=== PATIENT | male | born 1980 | race Caucasian/White ===

== ENCOUNTER 2017-03-26 14:12 | Emergency (ER) | payer SELFPAY ==
[~2017-03-26] VITALS: Ht 175.3 cm; Wt 70.0 kg
[~2017-03-26 14:12] MED LIST: OXYC1TAB63 PO
[2017-03-26 14:15] VITALS: BP 117/75; PULSE 102; RESP 20; TEMP 98.6; O2SAT 100
--- NOTE | 2017-03-26 14:18 | PD ---
Physical Exam Date Seen by Provider: Mar 26, 2017 Time Seen by Provider: 14:16 Narrative 36 yo male here for evaluation of chest pain. Going on since today. No SOB. pain to the mid upper chest. No recent travel or injury. 01/25. Vitals are stable in triage. Awaiting Bed placement. [facility] Medical Record Reviewed: Yes Supervised Visit with LEXI: Raj Meneses Mar 26, 2017 14:18
--- NOTE | 2017-03-26 14:51 | RADRPT ---
EXAM DATE/TIME: 03/26/2017 14:39 [facility] COMPARISON: No previous studies available for comparison. INDICATIONS : Left chest pain and fever since Friday MEDICAL HISTORY : AVM. SURGICAL HISTORY : AVM surgery. ENCOUNTER: Initial ACUITY: 2 days PAIN SCORE: 8/10 LOCATION: Left chest FINDINGS: PA and lateral views of the chest demonstrate the lungs to be symmetrically aerated without evidence of mass, infiltrate or effusion. The cardiomediastinal contours are unremarkable. Osseous structure s are intact. CONCLUSION: No acute disease. Chris Melara MD on March 26, 2017 at 14:49 Board Certified Radiologist. This report was verified electronically.
--- NOTE | 2017-03-27 11:37 | EKG ---
Date Performed: 03/26/2017 Time Performed: 14:40:19 PTAGE: 36 years EKG: Sinus rhythm WITH SHORT ND INTERVAL NONSPECIFIC T-WAVE ABNORMALITY BORDERLINE ECG Compared to prior tracing no si gnificant change PREVIOUS TRACING : 04/01/2015 10.05 DOCTOR: Tank Perez Interpretating Date/Time 03/27/2017 11:36:46
== END 2017-03-26 16:12 | disposition left against medical advice (07) ==
LOC: NED 14:12
DX: R07.9 Chest pain, unspecified (principal); Z53.21 Procedure and treatment not carried out due to patient leaving prior to being seen by health care provider
CPT/HCPCS: 71020; 93005; 99281

== ENCOUNTER 2017-03-27 20:47 | Inpatient (IN) | payer SELFPAY ==
[~2017-03-27] VITALS: Ht 182.9 cm; Wt 75.5 kg
[2017-03-27] VITALS (12 sets, daily range): BP systolic 117–155; BP diastolic 58–83; PULSE 79–108; RESP 16–25; TEMP 102–103.1; O2SAT 99–100
[2017-03-27] MEDS ORDERED: SODIUM CHLOR 0.9% 1000 ML INJ 800 ML IV ONE (20:53)
[2017-03-27] MEDS ORDERED: SODIUM CHLOR 0.9% 1000 ML INJ 1,000 ML IV ONE (20:53)
[2017-03-27] MEDS ORDERED: ACETAMINOPHEN 650 MG SUPP RECTAL ONE (21:00)
--- NOTE | 2017-03-27 21:01 | PD ---
HPI Chief Complaint: altered mental status Time Seen by Provider: 20:53 Travel History International Travel<30 days: No Contact w/Intl Traveler<30days: No Traveled to known affect area: No History of Present Illness HPI 36-year-old male with history of IVDU, brought in by ambulance from home for evaluation of altered mental status, left-sided paralysis, and rightward gaze. According to EMS who obtained history from the patient's mother, the patient was last seen normal yesterday when he presented to the emergency department here for chest pain, however left before being evaluated by a provider. EMS reports that the mom saw the patient at around 3:30 PM today sleeping. She placed a blanket on him, then when he was reevaluated at 7:30 PM, she noticed that he was not responding to her. BGL is 140. Upon arrival the patient has rightward preferential gaze, has left-sided paralysis, is awake, protecting his airway, following commands, however is aphasic and is unable to provide any history. Axillary temp of 101F. PFSH Past Medical History Blood Disorders: No Depression: Yes Cardiovascular Problems: Yes (AVM) Diminished Hearing: No Endocrine: No Gastrointestinal Disorders: No Genitourinary: No Headaches: Yes Immune Disorder: No Implanted Vascular Access Dvce: Yes Musculoskeletal: No Neurologic: Yes (HX AVM) Respiratory: Yes Seizures: Yes Past Surgical History Neurologic Surgery: Yes (AVM reapir occipital 6.5 yrs) Other Surgery: Yes (RIGHT HAND WITH PIN) Social History Alcohol Use: No Tobacco Use: Yes Substance Use: Yes (suboxone, IVDA) Allergies-Medications (Allergen,Severity, Reaction): Coded Allergies: Iohexol (OMNIPAQUE) (Verified Allergy, Mild, hives, 03/27/17) very mild hives, no itching. Reported Meds & Prescriptions Reported Meds & Active Scripts Active Oxycodone-Acetaminophen 5-325 mg Tab 1 Tab PO Q6H Review of Systems Except as stated in HPI: all other systems reviewed are Neg Physical Exam Narrative GENERAL: Well-developed, well-nourished, awake, alert, rightward gaze SKIN: Focused skin assessment warm/dry. HEAD: Atraumatic. Normocephalic. EYES: Pupils equal, round, 5 mm, reactive to light, rightward gaze palsy. No scleral icterus. No injection or drainage. ENT: No nasal bleeding or discharge. Mucous membranes pink and dry. Airway is patent and protected. NECK: Trachea midline. No JVD. No nuchal rigidity. CARDIOVASCULAR: Regular rate and rhythm. Distal pulses brisk and equal bilaterally. RESPIRATORY: No accessory muscle use. Clear to auscultation. Breath sounds equal bilaterally. GASTROINTESTINAL: Abdomen soft, non-tender, nondistended. MUSCULOSKELETAL: No obvious deformities. No clubbing. No cyanosis. No edema. NEUROLOGICAL: Awake and alert. No obvious cranial nerve deficits. Rightward gaze palsy. Flaccid paralysis of left upper and left lower extremity. Normal muscle strength and right upper and right lower extremity. Follows commands. Aphasic. Airway is patent and protected. PSYCHIATRIC: Appropriate mood and affect; insight and judgment normal. Data Data Last Documented VS Vital Signs Date Time Temp Pulse Resp B/P Pulse Ox O2 Delivery O2 Flow Rate FiO2 03/27/17 21:28 95 22 128/83 99 Room Air 03/27/17 20:53 102.7 Orders Electrocardiogram (03/27/17 20:53) Complete Blood Count With Diff (03/27/17 20:53) Comprehensive Metabolic Panel (03/27/17 20:53) Prothrombin Time / Inr (Pt) (03/27/17 20:53) Act Partial Throm Time (Ptt) (03/27/17 20:53) Lactic Acid Sepsis Protocol (03/27/17 20:53) Ckmb (Isoenzyme) Profile (03/27/17 20:53) Troponin I (03/27/17 20:53) Urinalysis - C+S If Indicated (03/27/17 20:53) Blood Culture (03/27/17 20:53) Chest, Single Ap (03/27/17 20:53) Blood Glucose (03/27/17 20:53) Ecg Monitoring (03/27/17 20:53) Iv Access Insert/Monitor (03/27/17 20:53) Oximetry (03/27/17 20:53) Oxygen Administration (03/27/17 20:53) Ct Brain W/O Iv Contrast(Rout) (03/27/17 20:53) Sodium Chlor 0.9% 1000 Ml Inj (Ns 1000 M (03/27/17 20:53) Sodium Chlor 0.9% 1000 Ml Inj (Ns 1000 M (03/27/17 20:53) Drug Screen, Random Urine (03/27/17 20:53) Insert Temp Sensing Alex Cath (03/27/17 20:53) Ammonia (03/27/17 20:53) Acetaminophen Supp (Tylenol Supp) (03/27/17 21:00) Vancomycin Inj (Vancomycin Inj) (03/27/17 21:15) Piperacil-Tazo 4.5 Gm Premix (Zosyn 4.5 (03/27/17 21:15) Admit Order (Ed Use Only) (03/27/17 21:35) CKMB (03/27/17 21:00) CKMB% (03/27/17 21:00) Labs Laboratory Tests Test 03/27/17 21:00 White Blood Count 18.6 TH/MM3 Red Blood Count 4.33 MIL/MM3 Hemoglobin 12.2 GM/DL Hematocrit 36.8 % Mean Corpuscular Volume 84.9 FL Mean Corpuscular Hemoglobin 28.1 PG Mean Corpuscular Hemoglobin 33.2 % Concent Red Cell Distribution Width 13.7 % Platelet Count 114 TH/MM3 Mean Platelet Volume 8.4 FL Neutrophils (%) (Auto) 96.2 % Lymphocytes (%) (Auto) 0.8 % Monocytes (%) (Auto) 2.4 % Eosinophils (%) (Auto) 0.3 % Basophils (%) (Auto) 0.3 % Neutrophils # (Auto) 17.9 TH/MM3 Lymphocytes # (Auto) 0.1 TH/MM3 Monocytes # (Auto) 0.5 TH/MM3 Eosinophils # (Auto) 0.1 TH/MM3 Basophils # (Auto) 0.1 TH/MM3 CBC Comment DIFF FINAL Differential Comment Prothrombin Time 16.2 SEC Prothromb Time International 1.4 RATIO Ratio Activated Partial 35.3 SEC Thromboplast Time Sodium Level 134 MEQ/L Potassium Level 3.4 MEQ/L Chloride Level 103 MEQ/L Carbon Dioxide Level 22.1 MEQ/L Anion Gap 9 MEQ/L Blood Urea Nitrogen 24 MG/DL Creatinine 1.03 MG/DL Estimat Glomerular Filtration 82 ML/MIN Rate Random Glucose 136 MG/DL Lactic Acid Level 2.3 mmol/L Calcium Level 7.8 MG/DL Total Bilirubin 1.5 MG/DL Aspartate Amino Transf 76 U/L (AST/SGOT) Alanine Aminotransferase 56 U/L (ALT/SGPT) Alkaline Phosphatase 122 U/L Ammonia LESS THAN 10 MCMOL/L Total Creatine Kinase 152 U/L Creatine Kinase MB 2.0 NG/ML Troponin I 4.22 NG/ML Total Protein 6.6 GM/DL Albumin 2.8 GM/DL MDM Medical Decision Making Medical Screen Exam Complete: Yes Emergency Medical Condition: Yes Medical Record Reviewed: Yes Interpretation(s) EKG: Sinus, rate 80, normal axis, short MD interval, no acute ischemic abnormality. Differential Diagnosis ICH, CVA, septic emboli, brain abscess, meningitis, encephalitis, metabolic abnormality, sepsis, bacteremia Narrative Course Patient was assessed upon arrival to the emergency department and promptly taken to CT scan for suspected acute intracranial pathology. Sepsis labs were also ordered and the patient was written for IV vancomycin and IV Zosyn. Patient is awake. He is staring off to the right. He has paralysis of the left upper and left lower extremity. He is able to follow commands, however he is aphasic. CT head: Small scattered cortical hemorrhages most prevalent right occipital region. Chest x-ray: CONCLUSION: Minimal patchy airspace disease both lungs probable inflammatory process. Initial vital signs show heart rate 86, blood pressure 128/58, pulse ox 99% on room air, oral temp of 102.7F. CBC is remarkable for WBC 18.6, neutrophils 96.2%. Lactic acid is 2.3. Troponin is 4.22. This is likely secondary to sepsis/endocarditis. Case discussed with conservator artifacts Dr. Abdul. Patient will be admitted to his service to the ICU for further treatment and evaluation of likely septic emboli with scattered cortical hemorrhages, sepsis, left hemiparesis. Shortly after the patient was admitted to the ICU, while still in the emergency department his mental status further decline. He was intubated for airway protection. Critical Care Narrative Aggregate critical care time was 40 minutes. Time to perform other separately billable procedures was not included in the critical care time. My time did not include minutes spent treating any other patients simultaneously or on activities that did not directly contribute to the patient's treatment. The services I provided to this patient were to treat and/or prevent clinically significant deterioration that could result in: , permanent disability, septic shock I provided critical care services requiring my management, as noted below: Chart data review, documentation time, medication orders and management, vital sign assessments/reviewing monitor data, ordering and reviewing lab tests, ordering and interpreting/reviewing x-rays and diagnostic studies, care of the patient and discussion of the patient with the admitting physicians. Procedures Procedure Narrative Emergent intubation: The patient was put in optimal position for the procedure. Rapid sequence intubation was initiated by me using 20 milligrams of etomidate IV and 50 milligrams of rocuronium IV. The patient was intubated with a 8.0 Icelandic cuffed endotracheal tube. Tube placement was confirmed by visualization of the tube and balloon passing through the cords, capnometry and subsequent chest x-ray. Breath sounds were equal and well aerated bilaterally postintubation. No breath sounds over stomach. Patient tolerated procedure well. Diagnosis Primary Impression: Sepsis Qualified Code: A41.9 - Sepsis, due to unspecified organism Additional Impressions: Cortical hemorrhage Hemiparesis Qualified Code: G81.90 - Hemiparesis, unspecified hemiparesis etiology, unspecified laterality Admitting Information Admitting Physician Requests: Admit Price Ghotra MD Mar 27, 2017 21:01
[2017-03-27] MEDS ORDERED: VANCOMYCIN INJ 1,000 MG in SODIUM CHLOR 0.9% 250 ML INJ 250 ML IV ONE (21:15)
[2017-03-27] MEDS ORDERED: PIPERACIL-TAZO 4.5 GM PREMIX 100 ML IV ONE (21:15)
[2017-03-27 21:21] LABS: AUTOMATED NEUTROPHIL # 17.9 TH/MM3 (1.8-7.7); BASOPHIL # 0.1 TH/MM3 (0-0.2); BASOPHIL % 0.3 % (0.0-2.0); EOSINOPHIL # 0.1 TH/MM3 (0-0.4); EOSINOPHIL % 0.3 % (0.0-4.0); HEMATOCRIT 36.8 % (39.0-51.0); HEMO FLAGS DIFF FINAL; LYMPH % 0.8 % (9.0-44.0); LYMPHOCYTE # 0.1 TH/MM3 (1.0-4.8); MEAN CELL VOLUME 84.9 FL (80.0-100.0); MEAN CORPUSCULAR HEMOGLOBIN 28.1 PG (27.0-34.0); MEAN CORPUSCULAR HGB CONC 33.2 % (32.0-36.0); MONO % 2.4 % (0.0-8.0); NEUT % 96.2 % (16.0-70.0); PLATELET COUNT 114 TH/MM3 (150-450); RED BLOOD COUNT 4.33 MIL/MM3 (4.50-5.90); RED CELL DISTRIBUTION WIDTH 13.7 % (11.6-17.2); WHITE BLOOD COUNT 18.6 TH/MM3 (4.0-11.0)
--- NOTE | 2017-03-27 21:28 | RADRPT ---
EXAM DATE/TIME: 03/27/2017 20:59 [facility] COMPARISON: CT BRAIN W/O CONTRAST, June 13, 2014, 17:22. INDICATIONS : Altered mental status, unresponsive. RADIATION DOSE: 56.35 CTDIvol (mGy) MEDICAL HISTORY : Non-responsive. SURGICAL HISTORY : Non-responsive. ENCOUNTER: Initial ACUITY: 1 day PAIN SCALE: Non-responsive LOCATION: cranial TECHNIQUE: Multiple contiguous axial images were obtained of the head. Using automated exposure control and adj ustment of the mA and/or kV according to patient size, radiation dose was kept as low as reasonably a chievable to obtain optimal diagnostic quality images. DICOM format image data is available electro nically for review and comparison. FINDINGS: Scattered small cortical hemorrhage are evident. There is no subdural hemorrhage. Ventricle size is appropriate. Minimal parenchymal calcifications are present in the right parietal occipital region stable interval. Orbits and nasal sinuses are unremarkable. CONCLUSION: Small scattered cortical hemorrhages most prevalent right occipital region. Vahe Sanchez MD FACR on March 27, 2017 at 21:25 Board Certified Radiologist. This report was verified electronically.
[2017-03-27 21:33] LABS: ALT (GPT) 56 U/L (12-78); ANION GAP 9 MEQ/L (5-15); AST (GOT) 76 U/L (15-37); BICARBONATE 22.1 MEQ/L (21.0-32.0); BLOOD UREA NITROGEN 24 MG/DL (7-18); CHLORIDE 103 MEQ/L (98-107); GLOMERULAR FILTRATION RATE 82 ML/MIN (>89); POTASSIUM 3.4 MEQ/L (3.5-5.1); SODIUM (NA) 134 MEQ/L (136-145)
[2017-03-27 21:37] LABS: ALKALINE PHOSPHATASE 122 U/L (45-117); CREATINE KINASE 152 U/L (39-308); TOTAL BILIRUBIN ADULT 1.5 MG/DL (0.2-1.0)
--- NOTE | 2017-03-27 21:38 | RADRPT ---
EXAM DATE/TIME: 03/27/2017 21:09 [facility] COMPARISON: CHEST SINGLE AP, April 01, 2015, 9:39. INDICATIONS : Fever. MEDICAL HISTORY : AVM SURGICAL HISTORY : AVM surgery. ENCOUNTER: Initial ACUITY: 3 days PAIN SCORE: Non-responsive. LOCATION: Bilateral chest FINDINGS: Minimal patchy nonspecific airspace disease is present in both lungs of the inflammatory process. Th ere is no pleural effusion. The heart and pulmonary vascularity are normal. CONCLUSION: Minimal patchy airspace disease both lungs probable inflammatory process. Vahe Sanchez MD FACR on March 27, 2017 at 21:36 Board Certified Radiologist. This report was verified electronically.
[2017-03-27 21:46] LABS: APTT (PATIENT) 35.3 SEC (24.3-30.1); INTERNATIONAL NORMALIZED RATIO 1.4 RATIO; PROTHROMBIN TIME - PATIENT 16.2 SEC (9.8-11.6)
[2017-03-27] MEDS ORDERED: MIDAZOLAM 100 MG/ML INJ 100 ML IV SCH (22:15)
[2017-03-27 22:23] LABS: BACTERIA, URINE RARE /hpf; BLOOD, URINE MOD (NEG); GLUCOSE,URINE NEG (NEG); KETONE, URINE TRACE mg/dL (NEG); NITRITE,URINE NEG (NEG); URINE COLOR YELLOW (YELLW/STRAW)
[2017-03-27 22:24] LABS: COMMENT (UR) CATH-CULTURE IND; CULTURE IF INDICATED CATH CULTURE IND
--- NOTE | 2017-03-27 22:39 | RADRPT ---
EXAM DATE/TIME: 03/27/2017 22:05 [facility] COMPARISON: CHEST SINGLE AP, March 27, 2017, 21:09. INDICATIONS : Post intubation. MEDICAL HISTORY : Unobtainable. SURGICAL HISTORY : Unobtainable. ENCOUNTER: Subsequent ACUITY: 1 day PAIN SCORE: Non-responsive. LOCATION: Bilateral chest FINDINGS: ET tube nasogastric tube in good position. Lungs are clear. The portion of the bony skeleton visuali zed is unremarkable. The heart and pulmonary vascularity are normal. CONCLUSION: Support apparatus in good position. Lungs are clear. Vahe Sanchez MD FACR on March 27, 2017 at 22:37 Board Certified Radiologist. This report was verified electronically.
[2017-03-27 22:43] LABS: BLOOD GAS BASE EXCESS -4.5 mmol/L (-2-2); BLOOD GAS CARBOXYHEMOGLOBIN 0.6 % (0-4); BLOOD GAS HCO3 21 mmol/L (22-26); BLOOD GAS METHEMOGLOBIN 0.9 % (0-2); BLOOD GAS O2 HGB SATURATION 96 % (90-100); BLOOD GAS OXYGEN CONTENT 16.1 Vol % (12.0-20.0); BLOOD GAS PCO2 46 mmHg (38-42); BLOOD GAS PO2 120 mmHG (61-120); BLOOD GAS TOTAL HGB 11.8 G/DL (12.0-16.0); TEMP CORR TO 98.6
[2017-03-27 22:44] LABS: CRITICAL VALUE YES; DRAW SITE LT BRACHIAL; FIO2 35 %; NUMBER OF ARTERIAL PUNCTURES 1; OXYGEN DEVICE VENTILATOR; STAT YES; ULNAR PULSE PRESENT; VENT SETTINGS VAC16/500/PEEP5
[2017-03-27] MEDS ORDERED: ETOMIDATE 20 MG/10 ML VIAL IV PUSH ONE (22:45)
[2017-03-27] MEDS ORDERED: ROCURONIUM INJ 50 MG/5 ML VIAL IV ONE (22:45)
[2017-03-27 23:12] LABS: LACTIC ACID GHOST NOT REPORTABLE
[2017-03-27] MEDS ORDERED: POTASSIUM CHLOR 20 MEQ PREMIX 100 ML IV PRN ×2 (23:15)
[2017-03-27] MEDS ORDERED: DEXTROSE 50% IN WATER 50 ML VIAL(D50) IV PUSH PRN (23:15)
[2017-03-27] MEDS ORDERED: Vancomycin Consult Pharmacy 1 EA OTHER SCH (23:15)
[2017-03-27] MEDS ORDERED: MAGNESIUM SULFATE INJ 4 GM in SODIUM CHLORIDE 0.9% INJ 92 ML IV PRN (23:15)
[2017-03-27] MEDS ORDERED: POTASSIUM PHOSPHATE INJ 30 MMOL in SODIUM CHLOR 0.9% 250 ML INJ 250 ML IV PRN (23:15)
[2017-03-27] MEDS ORDERED: MAGNESIUM OXIDE 400 MG TAB PO PRN (23:15)
[2017-03-27] MEDS ORDERED: POTASSIUM PHOSPHATE MONOBASIC 500 MG TAB PO PRN (23:15)
[2017-03-27] MEDS ORDERED: LACTATED RINGER'S 1000 ML INJ 1,000 ML IV SCH (23:15)
[2017-03-27] MEDS ORDERED: POTASSIUM CHLOR 40 MEQ PREMIX 100 ML IV PRN ×2 (23:15)
[2017-03-27] MEDS ORDERED: MAGNESIUM SULFATE INJ 2 GM in SODIUM CHLORIDE 0.9% INJ 96 ML IV PRN (23:15)
[2017-03-27] MEDS ORDERED: POTASSIUM PHOSPHATE MONOBASIC 500 MG TAB PO/TUBE PRN (23:15)
[2017-03-27] MEDS ORDERED: RESP: ALBUTEROL 2.5 MG/IPRATROPIUM 0.5 MG NEB (PRN) INH (23:15)
[2017-03-27] MEDS ORDERED: SODIUM PHOSPHATE INJ 30 MMOL in SODIUM CHLOR 0.9% 250 ML INJ 240 ML IV PRN (23:15)
--- NOTE | 2017-03-27 23:22 | HHI.HP ---
HPI Service Critical Care Medicine Primary Care Physician No Primary Care Physician Admission Diagnosis sepsis, cortical hemorrhages, left hemiparesis Diagnosis: Chief Complaint: chest pain, altered mental status Travel History International Travel<30 Days: No Contact w/Intl Traveler <30 Da: No Traveled to Known Affected Are: No History of Present Illness This is a 36-year-old male with a history of IV drug abuse who originally presented to the hospital yesterday with complaints of chest pain but left AMA before being evaluated. He reports a net today brought in by EMS for altered mental status, left-sided paralysis, and rightward gaze. He was last seen normal last night. He was not protecting his area emergency department and was intubated by the emergency room physician for hypoxic and hypercarbic respiratory failure. He was febrile in the emergency department with a leukocytosis, lactic acidosis. CT head is positive for multiple small punctate hemorrhages. I was present for his bedside transthoracic echocardiogram which appears to be positive for a 1 x 1 cm mobile aortic valve vegetation with significant aortic regurgitation. 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 Review of Systems ROS Limitations: Clinical Condition, Intubated, Altered Mental Status Past Family Social History Allergies: Coded Allergies: Iohexol (OMNIPAQUE) (Verified Allergy, Mild, hives, 03/27/17) very mild hives, no itching. Past Medical History Depression Cerebral AVM status post resection at [facility] when he was a child Headaches Seizures Past Surgical History AVM resection at the age of 6.5 years Pin In the right hand Reported Medications Oxycodone-Acetaminophen 5-325 mg Tab 1 Tab PO Q6H Active Ordered Medications See MAR Family History Unobtainable secondary to the clinical condition of the patient Social History Positive for current and active IV drug abuse, Suboxone Physical Exam Vital Signs Vital Signs Date Time Temp Pulse Resp B/P Pulse Ox O2 Delivery O2 Flow Rate FiO2 03/27/17 23:00 102.0 104 16 130/64 100 Ventilator 35 03/27/17 22:25 102.9 108 16 155/71 100 Ventilator 35 03/27/17 22:13 105 16 154/72 100 Ventilator 35 03/27/17 22:07 103.1 106 16 122/62 100 Ventilator 35 03/27/17 22:04 35 03/27/17 22:03 100 20 130/60 100 Room Air 03/27/17 22:01 100 35 03/27/17 21:55 100 20 125/59 100 Room Air 03/27/17 21:55 100 Nasal Cannula 13 03/27/17 21:28 95 22 128/83 99 Room Air 03/27/17 21:23 25 100 Room Air 03/27/17 21:20 90 25 100 Room Air 03/27/17 21:00 79 22 117/61 100 Room Air 03/27/17 20:53 102.7 86 25 128/58 99 Physical Exam GENERAL: Young male, lying in bed, intubated, sedated, critically ill HEENT: Normocephalic. Atraumatic. Pupils equal, round, reactive, conjugate. Mucous membranes are moist NECK: Trachea is midline. There is no JVD. CHEST: Equal chest rise. Intubated. PRVC, 40% FiO2 CARDIOVASCULAR: Tachycardic rate, regular rhythm. Sinus by telemetry ABDOMEN: Soft, nontender, nondistended. No guarding. MUSCULOSKELETAL: Pulses 2+. No peripheral edema. Positive for splinter hemorrhages. Also positive for evidence of IV needle radford particularly in the upper extremities NEUROLOGICAL: RASS -3. Withdrawals pain 4, does not follow commands. Sedated Laboratory Laboratory Tests Test 03/27/17 03/27/17 03/27/17 21:00 21:28 22:25 White Blood Count 18.6 Red Blood Count 4.33 Hemoglobin 12.2 Hematocrit 36.8 Mean Corpuscular Volume 84.9 Mean Corpuscular Hemoglobin 28.1 Mean Corpuscular Hemoglobin 33.2 Concent Red Cell Distribution Width 13.7 Platelet Count 114 Mean Platelet Volume 8.4 Neutrophils (%) (Auto) 96.2 Lymphocytes (%) (Auto) 0.8 Monocytes (%) (Auto) 2.4 Eosinophils (%) (Auto) 0.3 Basophils (%) (Auto) 0.3 Neutrophils # (Auto) 17.9 Lymphocytes # (Auto) 0.1 Monocytes # (Auto) 0.5 Eosinophils # (Auto) 0.1 Basophils # (Auto) 0.1 CBC Comment DIFF FINAL Differential Comment Prothrombin Time 16.2 Prothromb Time International 1.4 Ratio Activated Partial 35.3 Thromboplast Time Sodium Level 134 Potassium Level 3.4 Chloride Level 103 Carbon Dioxide Level 22.1 Anion Gap 9 Blood Urea Nitrogen 24 Creatinine 1.03 Estimat Glomerular Filtration 82 Rate Random Glucose 136 Lactic Acid Level 2.3 Calcium Level 7.8 Total Bilirubin 1.5 Aspartate Amino Transf 76 (AST/SGOT) Alanine Aminotransferase 56 (ALT/SGPT) Alkaline Phosphatase 122 Ammonia LESS THAN 10 Total Creatine Kinase 152 Creatine Kinase MB 2.0 Troponin I 4.22 Total Protein 6.6 Albumin 2.8 Urine Color YELLOW Urine Turbidity CLEAR Urine pH 6.0 Urine Specific Arjay 1.023 Urine Protein 30 Urine Glucose (UA) NEG Urine Ketones TRACE Urine Occult Blood MOD Urine Nitrite NEG Urine Bilirubin NEG Urine Urobilinogen 2.0 Urine Leukocyte Esterase SMALL Urine RBC 8 Urine WBC 10 Urine Bacteria RARE Urine Yeast (Budding) OCC Microscopic Urinalysis Comment CATH-CULTURE IND Blood Gas Puncture Site LT BRACHIAL Blood Gas Patient Temperature 98.6 Blood Gas HCO3 21 Blood Gas Base Excess -4.5 Blood Gas Oxygen Saturation 96 Arterial Blood pH 7.29 Arterial Blood Partial 46 Pressure CO2 Arterial Blood Partial 120 Pressure O2 Arterial Blood Oxygen Content 16.1 Arterial Blood 0.6 Carboxyhemoglobin Arterial Blood Methemoglobin 0.9 Blood Gas Hemoglobin 11.8 Oxygen Delivery Device VENTILATOR Blood Gas Ventilator Setting [id number]/500/[id number] Blood Gas Inspired Oxygen 35 Date/Time Procedure Status Source Growth 03/27/17 21:28 Urine Culture Received Urine Catheterized Urine Pending 03/27/17 21:00 Aerobic Blood Culture Received Blood Peripheral Pending 03/27/17 21:00 Anaerobic Blood Culture Received Blood Peripheral Pending Result Diagram: 03/27/17 2100 03/27/17 2100 Imaging Last Impressions Head CT 03/27/172052 Signed Impressions: Service Date/Time: March 20:59 - CONCLUSION: Small scattered cortical hemorrhages most prevalent right occipital region. Vahe Sanchez MD FACR Chest X-Ray 03/27/172052 Signed Impressions: Service Date/Time: March 21:09 - CONCLUSION: Minimal patchy airspace disease both lungs probable inflammatory process. Vahe Sanchez MD FACR Assessment and Plan Assessment and Plan Assessment: This is a 36yM with aortic valve infective endocarditis, significant aortic regurgitation, punctate intracerebral hemorrhages, acute encephalopathy, severe sepsis, and acute hypoxic and hypercarbic respiratory failure. He remains critically ill at this time. Will admit to ICU, IV abx, frequent neuro checks, repeat CT head in the AM to eval for interval change in small punctate hemorrhages. avoid anticoagulation. ID consult for ongoing recommendations regarding his infective endocarditis. Plan by systems: Neurologic: Acute encephalopathy Acute punctate intracerebral hemorrhages Septic intracerebral emboli IV drug abuse Chronic opiates/Suboxone abuse Frequent neuro checks Repeat head CT in the morning Avoid long-acting sedating meds Propofol/fentanyl for sedation vent synchrony Watch for withdrawal symptoms Respiratory: Acute hypoxic and hypercarbic respiratory failure Vent bundle Head of bed at 30 Wean FiO2 for SPO2 greater than 90% Does not meet SBT criteria given hemodynamic instability Nebs Cardiovascular: Aortic valve infective endocarditis Aortic regurgitation Severe sepsis Elevated troponin unlikely to be ACS given lack of risk factors. elevated troponin likely demand ischemia and secondary to valvular lesion. could be due to septic coronary emboli. trend troponins. cannot anticoagulate due to intracerebral hemorrhages. Maintenance fluids normal saline 84 cc an hour IV antibiotics as below Follow-up official formal read of 2-D echo Renal: Place Alex, strict I's and O's, close monitoring of urine output given severe sepsis and valvulopathy -- Strict I/Os FEN/GI: Acute protein calorie malnutritionmoderate Intravascular volume depletion Elevated LFTs Start tube feeding Fluids as described above ICU electrolyte protocol Send hepatitis panel Liver ultrasound Heme/ID: Coagulopathylikely secondary to liver disease Aortic valve infective endocarditis Severe sepsis Trend coags Does not meet transfusion criteria at this time. INR is < 1.6, so FFP will not improve clotting time. would plan to only use FFP if ICH is worsening. Vancomycin with pharmacy dosing Zosyn 4.5 g IV every 6 ID consult Endocrine: Hyperglycemia of critical illness -- SSI, every 6, medium scale Prophylaxis: GI Prophylaxis Pepcid twice a day DVT Prophylaxis -- SCDs Pharmacologic DVT prophylaxis contraindicated given intracerebral hemorrhages Lines: Peripheral IVs. May require central access at some point Abi Dispo: Admit to the ICU. Remains critically ill This patient remains critically ill with one or more organ systems which are or may become a threat to life. I have spent in excess of 77 minutes discontinuously in the care and management of this patient. This time is exclusive of procedures, and includes, but is not limited to, evaluation of the patient, review of the medical record, discussions with family, consultants, nursing staff, or respiratory therapy, and documentation in the medical record. Code Status Full Code Discussed Condition With Dr. Ghotra, family at bedside, bedside RN Chavo Abdul MD Mar 27, 2017 23:22
[2017-03-28] VITALS (24 sets, daily range): BP systolic 101–110; BP diastolic 51–56; PULSE 84–108; RESP 14–27; TEMP 100.3–102; O2SAT 94–100
[2017-03-28] MEDS ORDERED: ROCURONIUM INJ 50 MG/5 ML VIAL ONE (00:02)
[2017-03-28] MEDS ORDERED: CHLORHEXIDINE GLUCONATE 2 % 1 PACK (2 CLOTHS)(extra cloths) TOPICAL PRN (00:30)
[2017-03-28 01:06] LABS: AMPHETAMINE, URINE NEG (NEG); BARBITURATES, URINE NEG (NEG); COCAINE, URINE POS (NEG)
[2017-03-28] MEDS: RESP: ALBUTEROL 2.5 MG/IPRATROPIUM 0.5 MG NEB (SCH) INH ×4 (03:30→22:15)
[2017-03-28] MEDS: PIPERACIL-TAZO 4.5 GM PREMIX 100 ML IV SCH ×4 (03:36→20:11)
[2017-03-28] MEDS: CHLORHEXIDINE GLUCONATE 2 % 1 PACK (2 CLOTHS)(taper/protocol) TOPICAL SCH (03:40)
[2017-03-28] MEDS: fentaNYL DRIP 250 ML IV SCH (05:14)
--- NOTE | 2017-03-28 05:28 | RADRPT ---
EXAM DATE/TIME: 03/28/2017 04:31 [facility] COMPARISON: CHEST SINGLE AP, March 27, 2017, 22:05. INDICATIONS : Atelectasis MEDICAL HISTORY : None. SURGICAL HISTORY : None. ENCOUNTER: Subsequent ACUITY: 3 days PAIN SCORE: Non-responsive. LOCATION: Bilateral chest FINDINGS: Mild consolidation with air bronchograms seen medially at the left lung base, not significantly martin ed. No pleural effusion seen. No pneumothorax. Heart size stable, normal. Endotracheal tube tip is about 5 cm above the rachana. Nasogastric tube courses into the stomach. CONCLUSION: No significant change. Medial left lung base consolidation persists. Hira Guillen MD on March 28, 2017 at 5:25 Board Certified Radiologist. This report was verified electronically.
[2017-03-28 05:33] LABS: HEMATOCRIT 34.2 % (39.0-51.0); MEAN CELL VOLUME 82.9 FL (80.0-100.0); MEAN CORPUSCULAR HEMOGLOBIN 28.6 PG (27.0-34.0); MEAN CORPUSCULAR HGB CONC 34.5 % (32.0-36.0); PLATELET COUNT 81 TH/MM3 (150-450); RED BLOOD COUNT 4.13 MIL/MM3 (4.50-5.90); RED CELL DISTRIBUTION WIDTH 13.8 % (11.6-17.2); WHITE BLOOD COUNT 18.8 TH/MM3 (4.0-11.0)
[2017-03-28 05:37] LABS: REVIEW FLAG FINAL
[2017-03-28 05:43] LABS: BICARBONATE 20.2 MEQ/L (21.0-32.0); POTASSIUM 3.6 MEQ/L (3.5-5.1)
[2017-03-28 05:46] LABS: BLOOD GAS BASE EXCESS -3.3 mmol/L (-2-2); BLOOD GAS CARBOXYHEMOGLOBIN 1.1 % (0-4); BLOOD GAS HCO3 20 mmol/L (22-26); BLOOD GAS METHEMOGLOBIN 1.3 % (0-2); BLOOD GAS O2 HGB SATURATION 97 % (90-100); BLOOD GAS OXYGEN CONTENT 16.4 Vol % (12.0-20.0); BLOOD GAS PCO2 32 mmHg (38-42); BLOOD GAS PO2 158 mmHg (61-120); BLOOD GAS TOTAL HGB 11.8 G/DL (12.0-16.0); CRITICAL VALUE NO; DRAW SITE RT RADIAL; FIO2 35 %; NUMBER OF ARTERIAL PUNCTURES 1; OXYGEN DEVICE VENTILATOR; STAT NO; ULNAR PULSE PRESENT; VENT SETTINGS AC 16/500/5PEEP
[2017-03-28] MEDS: INSULIN NovoLIN REGULAR SUPPLEMENTAL SCALE SQ SCH ×5 (06:00→23:31)
--- NOTE | 2017-03-28 08:06 | HHI.CCPN ---
Subjective Remarks/Hospital Course This is a 36-year-old male with a history of IV drug abuse who originally presented to the hospital yesterday with complaints of chest pain but left AMA before being evaluated. He reports a net today brought in by EMS for altered mental status, left-sided paralysis, and rightward gaze. He was last seen normal last night. He was not protecting his area emergency department and was intubated by the emergency room physician for hypoxic and hypercarbic respiratory failure. He was febrile in the emergency department with a leukocytosis, lactic acidosis. CT head is positive for multiple small punctate hemorrhages. I was present for his bedside transthoracic echocardiogram which appears to be positive for a 1 x 1 cm mobile aortic valve vegetation with significant aortic regurgitation. 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 SUBJ 03/28: Remains intubated sedated with Fentanyl gtt. Flaccid L hemiparesis. Continues to spike fever, and remains encephalopathic indicating ongoing severe sepsis. P/E with [place]ub[place] murmur. TTE personally reviewed. Evidence of AV vegetation with severe AI Objective Vital Signs Date Time Temp Pulse Resp B/P Pulse Ox O2 Delivery O2 Flow Rate FiO2 03/28/17 07:27 95 35 03/27/17 23:00 102.0 104 16 130/64 Ventilator 03/27/17 21:55 13 Result Diagram: 03/28/17 0434 03/28/17 0434 Other Results Laboratory Tests Test 03/27/17 03/28/17 22:25 05:30 Blood Gas Puncture Site LT BRACHIAL RT RADIAL Blood Gas Patient Temperature 98.6 102.0 Blood Gas HCO3 21 mmol/L 20 mmol/L (22-26) (22-26) Blood Gas Base Excess -4.5 mmol/L -3.3 mmol/L (-2-2) (-2-2) Blood Gas Oxygen Saturation 96 % (90-100) 97 % (90-100) Arterial Blood pH 7.29 7.43 (7.380-7.420) (7.380-7.420) Arterial Blood Partial 46 mmHg (38-42) 32 mmHg (38-42) Pressure CO2 Arterial Blood Partial 120 mmHG 158 mmHg Pressure O2 (61-120) (61-120) Arterial Blood Oxygen Content 16.1 Vol % 16.4 Vol % (12.0-20.0) (12.0-20.0) Arterial Blood 0.6 % (0-4) 1.1 % (0-4) Carboxyhemoglobin Arterial Blood Methemoglobin 0.9 % (0-2) 1.3 % (0-2) Blood Gas Hemoglobin 11.8 G/DL 11.8 G/DL (12.0-16.0) (12.0-16.0) Oxygen Delivery Device VENTILATOR VENTILATOR Blood Gas Ventilator Setting VAC16/500/PEEP5 AC 16/500/5PEEP Blood Gas Inspired Oxygen 35 % 35 % Imaging Last Impressions Head CT 03/27/172052 Signed Impressions: Service Date/Time: March 20:59 - CONCLUSION: Small scattered cortical hemorrhages most prevalent right occipital region. Vahe Sanchez MD FACR Chest X-Ray 03/27/172052 Signed Impressions: Service Date/Time: March 21:09 - CONCLUSION: Minimal patchy airspace disease both lungs probable inflammatory process. Vahe Sanchez MD FACR Objective Remarks GENERAL: Young male, lying in bed, intubated, sedated, critically ill HEENT: Normocephalic. Atraumatic. Pupils equal, round, reactive, conjugate. Mucous membranes are moist NECK: Trachea is midline. There is no JVD. CHEST: Equal chest rise. Intubated. PRVC, 40% FiO2 CARDIOVASCULAR: Tachycardic rate, regular rhythm. Sinus by telemetry. Early diastolic ([place]ub[place]) murmur ABDOMEN: Soft, nontender, nondistended. No guarding. MUSCULOSKELETAL: Pulses 2+. No peripheral edema. Positive for splinter hemorrhages. Also positive for evidence of IV needle radford particularly in the upper extremities NEUROLOGICAL: Sedated with Fentanyl. L gaze preference. Pupils sluggish reaction. Flaccid L hemiplegia. Purposefully moves right upper and lower extremity A/P Assessment and Plan Assessment: This is a 36yM with aortic valve infective endocarditis, significant aortic regurgitation, punctate intracerebral hemorrhages, L hemiplegia, troponin elevation, acute encephalopathy, severe sepsis, and acute hypoxic and hypercarbic respiratory failure. He remains critically ill at this time. Continue, IV abx, frequent neuro checks, get MRI brain with and without contrast. avoid anticoagulation. ID consult for ongoing recommendations regarding his infective endocarditis. Consult neurology and CT surgery. Hold off cardiology consult was the patient is not a candidate for antiplatelet therapy or any intervention at this time due to punctate intracerebral hemorrhages Plan by systems: Neurologic: Acute encephalopathy Acute punctate intracerebral hemorrhages Septic intracerebral emboli IV drug abuse Chronic opiates/Suboxone abuse Frequent neuro checks. MRI of brain with and without contrast Propofol/fentanyl for sedation vent synchrony Watch for withdrawal symptoms --Daily sedation vacation as clinical condition permits --Neurology consult Respiratory: Acute hypoxic and hypercarbic respiratory failure Left base consolidation/pneumonia Vent bundle Head of bed at 30 Wean FiO2 for SPO2 greater than 90% Does not meet SBT criteria given hemodynamic instability Nebs --Broad-spectrum antibiotics Cardiovascular: Aortic valve infective endocarditis Aortic regurgitation Severe sepsis Elevated troponin/NSTEMI unlikely to be ACS given lack of risk factors. elevated troponin likely demand ischemia and secondary to valvular lesion. could be due to septic coronary emboli. trend troponins. cannot anticoagulate due to intracerebral hemorrhages. Maintenance fluids normal saline 150 cc an hour IV antibiotics as below Follow-up official formal read of 2-D echo --Cardiothoracic surgery consult Renal: Place Alex, strict I's and O's, close monitoring of urine output given severe sepsis and valvulopathy --Strict I/Os FEN/GI: Acute protein calorie malnutritionmoderate Intravascular volume depletion Elevated LFTs Start tube feeding, bowel regimen Fluids as described above ICU electrolyte protocol Hepatitis panel Liver ultrasound Heme/ID: Coagulopathylikely secondary to liver disease Aortic valve infective endocarditis Severe sepsis Thrombocytopenia Trend coags Does not meet transfusion criteria at this time. INR is < 1.6, so FFP will not improve clotting time. would plan to only use FFP if ICH is worsening. Vancomycin with pharmacy dosing Zosyn 4.5 g IV every 6 ID consult --Thrombocytopenia most likely secondary to DIC Endocrine: Hyperglycemia of critical illness --SSI, every 6, medium scale --Electrolyte replacement per protocol Prophylaxis: GI Prophylaxis Pepcid twice a day DVT Prophylaxis -- SCDs Pharmacologic DVT prophylaxis contraindicated given intracerebral hemorrhages Lines: Peripheral IVs. May require central access at some point Abi Dispo: Admit to the ICU. Remains critically ill This patient remains critically ill with one or more organ systems which are or may become a threat to life. I have spent in excess of 45 minutes discontinuously in the care and management of this patient. This time is exclusive of procedures, and includes, but is not limited to, evaluation of the patient, review of the medical record, discussions with family, consultants, nursing staff, or respiratory therapy, and documentation in the medical record. Leonard Iniguez MD Mar 28, 2017 08:06
[2017-03-28 08:36] LABS: INTERNATIONAL NORMALIZED RATIO 1.3 RATIO; PROTHROMBIN TIME - PATIENT 14.2 SEC (9.8-11.6)
[2017-03-28] MEDS: PROPOFOL 1000 MG/100 ML INJ 100 ML IV SCH ×3 (08:45→23:28)
[2017-03-28] MEDS: ACETAMINOPHEN 650 MG/20.3 ML UDC PO PRN ×4 (08:45→23:31)
[2017-03-28] MEDS: SODIUM CHLOR 0.9% 1000 ML INJ 1,000 ML IV SCH ×3 (08:46→20:12)
[2017-03-28] MEDS: CHLORHEXIDINE 0.12% (ORAL KIT) 15 ML CUP MT SCH ×2 (08:46→20:11)
--- NOTE | 2017-03-28 09:31 | ECHRPT ---
Indication: SEPSIS ENDOCARDITIS CONCLUSIONS Normal left ventricular size. Wall thickness is normal. The left ventricular systolic function is low normal with an estimated ejection fraction in the rang e of 50- 55%. Findings consistent with vegetation on the aortic valve. [id number] aortic valve regurgitation. There is trace tricuspid valve regurgitation. The estimated pulmonary arterial pressure is 34mmHg. BP: / HR: Rhythm: Sinus MEASUREMENTS (Male / Female) Normal Values Technical Quality:Good 2D ECHO LV Diastolic Diameter PLAX 5.5 cm 4.2 - 5.9 / 3.9 - 5.3 cm LV Systolic Diameter PLAX 4.2 cm IVS Diastolic Thickness 0.7 cm 0.6 - 1.0 / 0.6 - 0.9 cm LVPW Diastolic Thickness 0.7 cm 0.6 - 1.0 / 0.6 - 0.9 cm LV Relative Wall Thickness 0.3 LA Systolic Diameter LX 3.3 cm 3.0 - 4.0 / 2.7 - 3.8 cm DOPPLER AV Peak Velocity 230.5 cm/s AV Peak Gradient 21.3 mmHg AV Mean Gradient 9.0 mmHg AV Velocity Time Integral 39.5 cm LVOT Peak Velocity 141.0 cm/s LVOT Peak Gradient 8.0 mmHg Mitral E Point Velocity 105.0 cm/s Mitral A Point Velocity 89.1 cm/s Mitral E to A Ratio 1.2 TR Peak Velocity 270.0 cm/s TR Peak Gradient 29.2 mmHg FINDINGS LEFT VENTRICLE Normal left ventricular size. Wall thickness is normal. The left ventricular systolic function is low normal with an estimated ejection fraction in the rang e of 50- 55%. RIGHT VENTRICLE Normal right ventricular size and systolic function. LEFT ATRIUM The left atrial size is normal. RIGHT ATRIUM The right atrial size is normal. ATRIAL SEPTUM Normal atrial septal thickness without atrial level shunting by limited color doppler interrogation. AORTA The aortic root and proximal ascending aorta are normal in size on limited imaging. MITRAL VALVE Structurally normal mitral valve. No mitral valve stenosis or regurgitation. AORTIC VALVE Findings consistent with vegetation on the aortic valve. Fxmkeaoo-[id number]-[id number] aortic valve regurgitation. TRICUSPID VALVE There is trace tricuspid valve regurgitation. The estimated pulmonary arterial pressure is 34mmHg. PULMONARY VALVE The pulmonary valve is not well visualized. VESSELS The inferior vena cava is normal in size. PERICARDIUM No pericardial effusion. Alfredito Newby MD (Electronically Signed) Final Date:28 March 2017 09:30
--- NOTE | 2017-03-28 10:43 | RADRPT ---
EXAM DATE/TIME: 03/28/2017 09:57 [facility] COMPARISON: CHEST SINGLE AP, March 28, 2017, 4:31. INDICATIONS : Central line placement. MEDICAL HISTORY : None. SURGICAL HISTORY : None. ENCOUNTER: Initial ACUITY: 3 days PAIN SCORE: Non-responsive. LOCATION: chest FINDINGS: Endotracheal tube is present with tip 6-7 cm above the rachana. Nasogastric tube descends into the sto mach. A left subclavian central line is present with tip overlying SVC. There is no evidence of pneum othorax or other complication of placement. Lungs are stable with slight asymmetric parenchymal opaci ty in the left base. Cardiac contours are stable. CONCLUSION: Satisfactory central line positioning. No pneumothorax. Hira Sanchez MD on March 28, 2017 at 10:40 Board Certified Radiologist. This report was verified electronically.
[2017-03-28] MEDS ORDERED: GADODIAMIDE PF 287 MG/ML 5 ML VIAL (for RAD MRI) IV ONE (11:19)
--- NOTE | 2017-03-28 11:30 | RADRPT ---
EXAM DATE/TIME: 03/28/2017 10:46 [facility] COMPARISON: CT BRAIN W/O CONTRAST, March 27, 2017, 20:59. INDICATIONS : Decreased level of consciousness. CONTRAST: 14 cc Omniscan (gadodiamide) IV MEDICAL HISTORY : Seizures. Cerebral AVM SURGICAL HISTORY : AVM resection. ENCOUNTER: Initial ACUITY: 1 day PAIN SCORE: 0/10 LOCATION: cranial TECHNIQUE: Multiplanar, multisequence MRI of the brain was performed both prior to and following the administrat ion of paramagnetic contrast. FINDINGS: There scattered areas of restricted diffusion consistent with evolving subacute infarcts, most conspi cuously in the right frontal cortex and insular cortex, however with scattered punctate areas also se en involving the periventricular white matter, the left frontal cortex, left parietal subcortical reg ion, the right cerebellar hemisphere. There is susceptibility associated with many of these areas ind icating likely petechial hemorrhage. There is no evidence of brain mass. The ventricles are symmetric and normal. Extracranial structures are grossly benign. CONCLUSION: Scattered areas of cortical and white matter infarction with associated petechial hemorrhages. Hira Sanchez MD on March 28, 2017 at 11:22 Board Certified Radiologist. This report was verified electronically.
[2017-03-28] MEDS: VANCOMYCIN 1,500 MG/NS 500 ML IV SCH ×4 (11:53→23:21)
--- NOTE | 2017-03-28 14:20 | EKG ---
Date Performed: 03/27/2017 Time Performed: 21:18:14 PTAGE: 36 years EKG: Sinus rhythm WITH SHORT GA INTERVAL BORDERLINE ECG PREVIOUS TRACING : 03/26/2017 14.40 Since previous tracing, there is some improvement in the ST -T changes. DOCTOR: Alvarado Cunha Interpretating Date/Time 03/28/2017 14:18:52
--- NOTE | 2017-03-28 14:44 | MB ---
cc: ALYSON HERNANDEZ M.D. DATE OF CONSULTATION: 03/28/2017. HISTORY OF PRESENT ILLNESS: This is a 36-year-old seen in neurological consultation. The chart was reviewed. The mother was at bedside. I briefly spoke to Dr. Iniguez. The patient as a history of IV drug use and was in the hospital yesterday with chest pain and left against medical advice and came back today with left-sided paralysis and rightward gaze. Apparently he was seen normal last night. The patient was intubated in the emergency room and was febrile. I reviewed the CT brain and subsequent to that he has had an MRI brain which is reporting scattered areas of tiny infarcts with some associated hemorrhagic component. An echocardiogram showed suggestions of aortic valve vegetation. The mother tells me that the patient has had seizures in the past but has declined to take any seizure medications because of possible adverse response. NEUROLOGICAL EXAMINATION: At the time of my exam he was sedated with fentanyl, intubated. Pupils small. He seems flaccid throughout and reflexes were unobtainable at the knees and ankles, plantar responses none. ASSESSMENT: Multiple areas of cerebral small infarcts with associated petechial hemorrhages likely from a septic embolism as there are apparent vegetations in the aortic valve. The patient has a history of drug abuse, intravenous. RECOMMENDATIONS AND PLAN: 1. We will avoid any blood thinners including antiplatelet agents and provide medical and supportive care. 2. An EEG eventually will be obtained. We will follow the neurological course and reevaluate him, especially after his sedation is diminished. Thank you for asking us to assist in his care. MD GEORGIA Caban/TONG /2:15 PM /2:26 PM
--- NOTE | 2017-03-28 15:04 | MB ---
cc: ULISA KIM DATE OF CONSULTATION: 03/28/2017 DATE OF : 1980 REASON FOR CONSULTATION: A 36-year-old male history of long-term IV drug use per the mother for approximately 15 years, has injected himself in the arms and legs and feet presented on with chest pain, left AMA before been evaluated and then he was brought in by EMS for altered mental status, left-sided paralysis, rightward gaze, apparently was seen the night before. He was intubated in the emergency department with the inability to protect his airway and also for hypoxia and hypercapnic respiratory failure. He was found to have to have leukocytosis, fever and positive lactic acidosis. He had a CT of the head which showed multiple small punctate hemorrhages they did a bedside transthoracic echocardiogram which showed a 1 x 1 cm mobile aortic valve vegetation with significant aortic regurgitation. Ejection fraction of 50-55%, the aortic regurgitation, moderate to severe trace tricuspid valve regurgitation. The mitral valve showed no evidence of stenosis or regurgitation. Patient currently remains intubated. He is on some sedation. The patient is apparently flaccid, with left hemiparesis. PAST MEDICAL HISTORY: 1. The patient's past medical history longstanding IV drug abuse. His drug screen came back positive for cocaine. 2. Other history includes depression 3. Headaches 4. seizures. 5. He has had a Arteriovenous malformation resection at the age of [age]. 6. He has some pins in his right hand. 7. He has also had other surgeries; He had a pseudoaneurysm and tear of the left brachial artery that the mother said occurred after he was trying to inject in his left arm that had a repaired in 09/29/[address] Vivas. 8. He had multiple admissions to the emergency department. 9. History of prior hallucinations. 10. He has had history of alcohol abuse. ALLERGIES The patient has allergies to OMNIPAQUE MEDICATIONS Oxycodone for pain management. FAMILY HISTORY The patient is , apparently lives with his mother, he has two brothers and a sister. SOCIAL HISTORY Positive for IV drug use started abusing drugs and alcohol in high school. He has used marijuana, cocaine, crack, narcotics. PHYSICAL EXAMINATION: IN GENERAL: On exam and very ill-appearing male lying in bed intubated, sedated critically ill. VITAL SIGNS: Blood pressure 130/60, heart rate 100, O2 sat 100% on 35% FIO2. HEAD, EYES, EARS, NOSE, AND THROAT: Currently pupils are equal, round, sluggish, however, reactive, Conjugated, trachea is midline. No JVD. HEART: Heart sounds S1-S2. There is a diastolic murmur present to the left lower sternal border. LUNGS: He has a few coarse breath sounds equal bilaterally. ABDOMEN: The abdomen is soft, flat, nontender. No guarding. EXTREMITIES: Positive for splinter hemorrhages also evidence of IV tracks in his upper extremities, mainly his left forearm also including his right arm. NEUROLOGIC: The patient neurologically will move the right upper and lower extremity but no movement on the left at this time. LABORATORY FINDINGS: Lab work shows hemoglobin of 11, hematocrit 34, white cell count 18,000, platelet count of 81, sodium 134, potassium 3.6, BUN 24, creatinine 0.98, lactic acid 2.3, now 1.7, troponin 4.2 with INR 1.4. Urinalysis showed some WBCs. MRSA not detected. Hepatitis C reactive positive, rapid plasma reagin nonreactive. Hepatitis A and B are negative. Micro shows 4/4 bottles of gram-positive cocci. Urine and sputum are pending. Brain MRI scattered areas of cortical an white matter infarct with associated petechial hemorrhages. Chest x-ray; Some medial left lung base consolidation. IMPRESSION Overall very unfortunate 36-year-old male with longstanding history of IV drug use, continued IV use up until his admission with acute respiratory failure, altered mental status, septic emboli with some petechial hemorrhages to the brain. Also significant 1 x 1 cm mobile aortic valve vegetation with significant aortic regurgitation. Other diagnosis includes sepsis, thrombocytopenia, a coagulopathy and pneumonia. Unfortunately the patient is not a candidate for surgery secondary to ongoing noncompliance, continued IV drug use, non operable candidate at this time. The patient's mother is at the bedside and is very distraught. I have talked with Dr. Valentin we will have palliative care evaluate and also obtain a hand decorator at the bedside for the assistance with the mother. DICTATED BY: CODEY Vasques MD RIC Alvarez/megan /2:25 PM /3:00 PM
--- NOTE | 2017-03-28 15:32 | PD.ID.CON ---
History of Present Illness Service ID Consult Requested By Dr. Chavo Abdul Reason for Consult Evaluation and management of MSSA endocarditis and severe sepsis Primary Care Physician No Primary Care Physician Diagnoses: History of Present Illness Most of the history was obtained by review of medical records as patient is currently intubated and no family in the room. Mr. Coppola is a 36 y/o male with a long history of IV drug abuse , seizure disorder, who was brought to [facility] Emergency Department by ambulance from his home on 03/27/17 because of altered mental status, left-sided paralysis , and rightward gaze. Per the EMS report, the patient had last appeared normal the day before. The patient's mother saw him sleeping around 3:30 PM on the day of ER presentation. She placed a blanket on him. She reevaluated him at around 7:30 PM she noticed he was not responding to her. Upon EMS arrival, the patient's blood glucose was 140; he had the rightward gaze; left-sided paralysis. He was able to protect his airway. He was following commands but was unable to speak or provide any history. EMS personnel noted a temperature of 101. Mother reported that the patient has had a history of IV drug abuse for approximately 15 years. 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 The patient had presented to the emergency department the day before, on at approximately 1412. He presented then for evaluation of chest pain that had begun on that same day. The pain was in the upper chest. He denied shortness of breath. Vital signs were stable. Unfortunately, the patient left AGAINST MEDICAL ADVICE prior to full evaluation in the emergency department. In the emergency department on 03/27/17 initial vital signs were as follows > temperature 102.7; pulse 95; respiratory rate 22; blood pressure 128 pulse oximetry 99% on room air.Workup in ED indicated a WBC count of 18.6, platelets 114, lactic acid 2.3. EKG showed normal sinus rhythm with a heart rate of [address]-T changes. A CT of the brain showed small scattered cortical hemorrhages in the right occipital area. Chest x-ray showed minimal patchy airspace disease in both the lungs. The patient was empirically started on vancomycin and Zosyn in the emergency department. The patient was felt unable to protect his airway. He was intubated and placed on mechanical ventilation. Critical care was consulted. An echocardiogram revealed what appeared to be a 1 x 1 cm mobile aortic valve vegetation with significant aortic regurgitation. 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 Neurology, palliative care services and cardiothoracic surgery have already been consulted. Hospital course at the time of my evaluation patient is in the intensive medical care unit currently intubated and sedated. Patient is currently not on any pressors. He does have a central line placed. Urine output is 450 cc in 8 hours. Infectious disease is consulted for evaluation and management of sepsis , staph aureus bacteremia, endocarditis as well as PR and stroke as a result of septic emboli-related infarctions. Patient is critically ill. Review of Systems ROS Limitations: Clinical Condition, Intubated Past Family Social History Allergies: Coded Allergies: Iohexol (OMNIPAQUE) (Verified Allergy, Mild, hives, 03/27/17) very mild hives, no itching. 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 a child Headaches Seizures Past Surgical History AVM resection at the age of 6.5 years Pin In the right hand Reported Medications Reported Meds & Active Scripts Active Oxycodone-Acetaminophen 5-325 mg Tab 1 Tab PO Q6H Active Ordered Medications Current Medications Medications (Trade) Dose Ordered Sig/Gunjan Route Start Time Stop Time Status Last Admin (Versed 100 Mg/ ml Inj) 100 ml @ 0 mls/hr TITRATE IV 03/27/17 22:15 Magnesium Oxide 800 mg 800 mg UNSCH PRN PO 03/27/17 23:15 Magnesium Sulfate 4 gm/Sodium Chloride 100 ml @ 50 mls/hr UNSCH PRN IV 03/27/17 23:15 Magnesium Sulfate 2 gm/Sodium Chloride 100 ml @ 50 mls/hr UNSCH PRN IV 03/27/17 23:15 Potassium Chloride 100 ml @ 50 mls/hr Q2H PRN IV 03/27/17 23:15 Potassium Chloride 100 ml @ 50 mls/hr Q2H PRN IV 03/27/17 23:15 Potassium Chloride 100 ml @ 50 mls/hr Q2H PRN IV 03/27/17 23:15 (KCl 40 Meq Premix Inj) 100 ml @ 25 mls/hr UNSCH PRN IV 03/27/17 23:15 (K-Phos) 2,000 mg Q4H PRN PO 03/27/17 23:15 Potassium Phosphate 2000 mg 2,000 mg UNSCH PRN PO/TUBE 03/27/17 23:15 Potassium Phosphate 30 mmol/ Sodium Chloride 260 ml @ 42 mls/hr UNSCH PRN IV 03/27/17 23:15 (Sodium Phosphate Inj/NS 250 ml Inj) 250 ml @ 42 mls/hr UNSCH PRN IV 03/27/17 23:15 (Peridex 0.12% Liq) 15 ml BID@08,20 MT 03/28/17 08:00 03/28/17 08:46 (D50w (Vial) Inj) 25 ml UNSCH PRN IV PUSH 03/27/17 23:15 Insulin Human Regular 1 1 Q6HR SQ 03/28/17 00:00 Propofol 100 ml @ 0 mls/hr TITRATE IV 03/27/17 23:15 03/28/17 13:39 Fentanyl Citrate 250 ml @ 0 mls/hr TITRATE IV 03/27/17 23:15 03/28/17 05:14 Pharmacy Profile Note 0 ml @ 0 mls/hr UNSCH OTHER 03/27/17 23:15 (Zosyn 4.5 Gm Premix) 100 ml @ 200 mls/hr Q6H IV 03/28/17 03:00 03/28/17 14:54 Miscellaneous Information Patient in critical care unit? Ass... Q361D .XX 03/28/17 00:30 (Chlorhexidine 2% Cloth) 3 pack DAILY@04 TOPICAL 03/28/17 04:00 04/01/17 04:01 03/28/17 03:40 (Chlorhexidine 2% Cloth) 3 pack UNSCH PRN TOPICAL 03/28/17 00:30 04/02/17 00:18 Acetaminophen 650 mg 650 mg Q6H PRN PO 03/28/17 08:00 03/28/17 14:54 Sodium Chloride 1,000 ml @ 150 mls/hr Q6H40M IV 03/28/17 08:15 03/28/17 15:33 (Vancomycin Inj/ NS 500 ml Inj) 515 ml @ 257.5 mls/ hr Q12H IV 03/28/17 10:00 8/11/17 11:53 Miscellaneous Information SPECIFIC LAB TO BE ... ONCE ONCE .XX 03/29/17 09:45 03/29/17 09:46 (Prostaphlin Inj/ NS Inj) 100 ml @ 200 mls/hr Q4H IV 03/28/17 18:00 03/28/17 17:41 (Demerol Inj) 25 mg Q4H PRN IV 03/28/17 18:00 03/28/17 17:56 (Nimbex Inj) 10 mg Q6H PRN IV PUSH 03/28/17 18:00 Family History Could not be obtained Social History Positive for current and active IV drug abuse, Suboxone. Rest of the details could not be obtained. Physical Exam Vital Signs Vital Signs Date Time Temp Pulse Resp B/P Pulse Ox O2 Delivery O2 Flow Rate FiO2 03/28/17 12:03 100 35 03/28/17 12:00 97 03/28/17 12:00 35 03/28/17 10:00 96 03/28/17 08:00 97 03/28/17 08:00 35 03/28/17 07:27 95 35 03/28/17 06:00 97 03/28/17 04:05 100 35 03/28/17 04:00 108 03/28/17 04:00 35 03/28/17 02:00 104 03/28/17 00:16 84 03/28/17 00:10 100 35 03/28/17 00:00 35 03/27/17 23:45 100 100 03/27/17 23:00 102.0 104 16 130/64 100 Ventilator 35 03/27/17 22:25 102.9 108 16 155/71 100 Ventilator 35 03/27/17 22:13 105 16 154/72 100 Ventilator 35 03/27/17 22:07 103.1 106 16 122/62 100 Ventilator 35 03/27/17 22:04 35 03/27/17 22:03 100 20 130/60 100 Room Air 03/27/17 22:01 100 35 03/27/17 21:55 100 20 125/59 100 Room Air 03/27/17 21:55 100 Nasal Cannula 13 03/27/17 21:55 100 Nasal Cannula 13.00 03/27/17 21:28 95 22 128/83 99 Room Air 03/27/17 21:23 25 100 Room Air 03/27/17 21:20 90 25 100 Room Air 03/27/17 21:00 79 22 117/61 100 Room Air 03/27/17 20:53 102.7 86 25 128/58 99 Physical Exam GENERAL: Thin built poorly, poorly nourished patient, in no apparent distress. SKIN: No rashes, ecchymoses or lesions. Cool and dry. We will track radford noted. HEAD: Atraumatic. Normocephalic. No temporal or scalp tenderness. EYES: Pupils equal round and reactive. Extraocular motions intact. No scleral icterus. No injection or drainage. ENT: Nose without bleeding, purulent drainage or septal hematoma. Throat without erythema, tonsillar hypertrophy or exudate. Uvula midline. Airway patent. NECK: Trachea midline. Supple, nontender, no meningeal signs. CARDIOVASCULAR: Systolic murmur gr II-III noted. No thrill or bruit noted. RESPIRATORY: Clear to auscultation. Breath sounds equal bilaterally. No wheezes , rales, or rhonchi. GASTROINTESTINAL: Abdomen soft, non-tender, nondistended. MUSCULOSKELETAL: On the left upper extremity dorsum there is evidence of cellulitis and possibly some induration on the second and third knuckle. Overall the left hand appeared to be slightly more swollen than the right side. NEUROLOGICAL: Sedated. Pupils equal and reacting to light. Left-sided upper and lower extremity deficit noted. Psych could not be assessed IV line sites with no evidence of infection. Laboratory Laboratory Tests Test 03/27/17 03/27/17 03/27/17 03/27/17 21:00 21:28 22:25 23:05 White Blood Count 18.6 Red Blood Count 4.33 Hemoglobin 12.2 Hematocrit 36.8 Mean Corpuscular Volume 84.9 Mean Corpuscular Hemoglobin 28.1 Mean Corpuscular Hemoglobin 33.2 Concent Red Cell Distribution Width 13.7 Platelet Count 114 Mean Platelet Volume 8.4 Neutrophils (%) (Auto) 96.2 Lymphocytes (%) (Auto) 0.8 Monocytes (%) (Auto) 2.4 Eosinophils (%) (Auto) 0.3 Basophils (%) (Auto) 0.3 Neutrophils # (Auto) 17.9 Lymphocytes # (Auto) 0.1 Monocytes # (Auto) 0.5 Eosinophils # (Auto) 0.1 Basophils # (Auto) 0.1 CBC Comment DIFF FINAL Differential Comment Prothrombin Time 16.2 Prothromb Time International 1.4 Ratio Activated Partial 35.3 Thromboplast Time Sodium Level 134 Potassium Level 3.4 Chloride Level 103 Carbon Dioxide Level 22.1 Anion Gap 9 Blood Urea Nitrogen 24 Creatinine 1.03 Estimat Glomerular Filtration 82 Rate Random Glucose 136 Lactic Acid Level 2.3 1.7 Calcium Level 7.8 Total Bilirubin 1.5 Aspartate Amino Transf 76 (AST/SGOT) Alanine Aminotransferase 56 (ALT/SGPT) Alkaline Phosphatase 122 Ammonia LESS THAN 10 Total Creatine Kinase 152 Creatine Kinase MB 2.0 Troponin I 4.22 Total Protein 6.6 Albumin 2.8 Urine Color YELLOW Urine Turbidity CLEAR Urine pH 6.0 Urine Specific Ulysses 1.023 Urine Protein 30 Urine Glucose (UA) NEG Urine Ketones TRACE Urine Occult Blood MOD Urine Nitrite NEG Urine Bilirubin NEG Urine Urobilinogen 2.0 Urine Leukocyte Esterase SMALL Urine RBC 8 Urine WBC 10 Urine Bacteria RARE Urine Yeast (Budding) OCC Microscopic Urinalysis Comment CATH-CULTURE IND Urine Opiates Screen NEG Urine Barbiturates Screen NEG Urine Amphetamines Screen NEG Urine Benzodiazepines Screen NEG Urine Cocaine Screen POS Urine Cannabinoids Screen NEG Blood Gas Puncture Site LT BRACHIAL Blood Gas Patient Temperature 98.6 Blood Gas HCO3 21 Blood Gas Base Excess -4.5 Blood Gas Oxygen Saturation 96 Arterial Blood pH 7.29 Arterial Blood Partial 46 Pressure CO2 Arterial Blood Partial 120 Pressure O2 Arterial Blood Oxygen Content 16.1 Arterial Blood 0.6 Carboxyhemoglobin Arterial Blood Methemoglobin 0.9 Blood Gas Hemoglobin 11.8 Oxygen Delivery Device VENTILATOR Blood Gas Ventilator Setting VAC16/500/PEEP5 Blood Gas Inspired Oxygen 35 Test 03/28/17 03/28/17 03/28/17 03/28/17 00:07 04:34 05:30 07:23 Nasal Screen MRSA (PCR) MRSA NOT DETECTED White Blood Count 18.8 Red Blood Count 4.13 Hemoglobin 11.8 Hematocrit 34.2 Mean Corpuscular Volume 82.9 Mean Corpuscular Hemoglobin 28.6 Mean Corpuscular Hemoglobin 34.5 Concent Red Cell Distribution Width 13.8 Platelet Count 81 Mean Platelet Volume 9.0 Sodium Level 134 Potassium Level 3.6 Chloride Level 102 Carbon Dioxide Level 20.2 Anion Gap 12 Blood Urea Nitrogen 24 Creatinine 0.98 Estimat Glomerular Filtration 87 Rate Random Glucose 151 Calcium Level 7.6 Troponin I 4.12 Blood Gas Puncture Site RT RADIAL Blood Gas Patient Temperature 102.0 Blood Gas HCO3 20 Blood Gas Base Excess -3.3 Blood Gas Oxygen Saturation 97 Arterial Blood pH 7.43 Arterial Blood Partial 32 Pressure CO2 Arterial Blood Partial 158 Pressure O2 Arterial Blood Oxygen Content 16.4 Arterial Blood 1.1 Carboxyhemoglobin Arterial Blood Methemoglobin 1.3 Blood Gas Hemoglobin 11.8 Oxygen Delivery Device VENTILATOR Blood Gas Ventilator Setting AC 16/500/5PEEP Blood Gas Inspired Oxygen 35 Prothrombin Time 14.2 Prothromb Time International 1.3 Ratio Activated Partial 28.0 Thromboplast Time Hepatitis A IgM Antibody NEGATIVE Hepatitis B Surface Antigen NEGATIVE Hepatitis B Core IgM Antibody NEGATIVE Hepatitis C Antibody REACTIVE Date/Time Procedure Status Source Growth 03/28/17 09:00 Gram Stain - Final Resulted Sputum Endotracheal 03/28/17 09:00 Sputum Culture Resulted Sputum Endotracheal Pending 03/27/17 21:28 Urine Culture - Preliminary Resulted Urine Catheterized Urine IMMATURE GROWTH - REINCUBATE 03/27/17 21:00 Aerobic Blood Culture - Preliminary Resulted Blood Peripheral Gram Positive Cocci 03/27/17 21:00 Anaerobic Blood Culture - Preliminary Resulted Gram Positive Cocci Result Diagram: 03/28/17 0434 03/28/17 0434 Imaging Last Impressions Chest X-Ray 03/28/17 0600 Signed Impressions: Service Date/Time: Tuesday, March 28, 2017 04:31 - CONCLUSION: No significant change. Medial left lung base consolidation persists. Hira Guillen MD Liver Ultrasound 03/28/17 0000 Signed Impressions: Service Date/Time: Tuesday, March 28, 2017 09:01 - CONCLUSION: Splenomegaly. Otherwise focally unremarkable Hira Sanchez MD Brain MRI 03/28/17 0000 Signed Impressions: Service Date/Time: Tuesday, March 28, 2017 10:46 - CONCLUSION: Scattered areas of cortical and white matter infarction with associated petechial hemorrhages. Hira Sanchez MD Head CT 03/27/172052 Signed Impressions: Service Date/Time: March 20:59 - CONCLUSION: Small scattered cortical hemorrhages most prevalent right occipital region. Vahe Sanchez MD FACR Assessment and Plan Assessment and Plan Sepsis present on admission Acute bacterial endocarditis (ERIC) of aortic valve with severe AI. MSSA bacteremia (based on verigene, final cultures still pending) Acute resp failure on vent Acute cerebral infarction: likely ERIC related septic emboli. Acute PR likely ERIC related septic emboli. acute metabolic encephalopathy: likely related to stroke, infection. Persistent fevers: infection,infarcts, drugs, dissemination of infection, untapped sources of infection like distant abscesses in lung or abdomen. Recs Continue Vanco IV (follow susceptibility to stop if it is confirmed MSSA) Continue Zosyn IV (aspiration risk and infiltrates) May consider discontinuation in am at 72 hours of aspiration treatment. Start Oxacillin IV (watch for seizures as Penicillins can lower seizure threshold) May need Genta IV if bacteremia persists after 48 hours of Oxacillin start or depending on clinical condition. CT C/A/P with contrast in am to r/o septic embolization to lungs and liver/ spleen. Follow Cr and UO to assess plan in am regarding this imaging recommendation. Due to multiple imaging will hold off on imaging tonight due to contrast related kidney damage concerns. Follow cultures Follow clinically. ECHO report reviewed Imaging reviewed. Critically ill. Time > 80 mins. Critical thinking, decision making, reviewed with clinical pharmacist regimen, nursing and CCM MD. covering this weekend. Filomena García MD Mar 28, 2017 15:32
--- NOTE | 2017-03-28 15:58 | PD.PROCEDR ---
Central Line Procedure REASON FOR PROCEDURE Central venous access PROCEDURE PERFORMED Central line placement: L subclavian central line CONSENT Informed consent for procedure was obtained and time out performed. The risks and benefits of the procedure were discussed with mother to include but limited to bleeding, clot formation, infection, and even ANESTHESIA Local injection of 1% Lidocaine DESCRIPTION OF THE PROCEDURE The patient was placed in supine, mild Trendelenburg position. The area was exposed and cleansed with ChloraPrep, times two. Large sterile drape was used to cover the patient, with the site exposed, under sterile conditions including cap, face mask, sterile gown, and sterile gloves. On single attempt, the introducer needle was inserted with negative pressure in syringe and venous flash was obtained. The guide wire was then advanced without any restriction and the needle was removed. The dilator was used without any complications. Using Seldinger technique the 20 CM 7F triple lumen catheter was advanced over the guide wire to a depth of 18 centimeters. The guide wire was removed. All ports were aspirated with dark venous blood return and flushed easily with sterile saline. All ports were capped. Antibiotic disc was placed around central line at puncture site. The central line was secured to the skin with two interrupted 2.0 silk sutures. The area was bandaged with sterile see- through central line bandage. COMPLICATIONS: No apparent complications ESTIMATED BLOOD LOSS: Less than 1 cc. Leonard Iniguez MD Mar 28, 2017 15:58
--- NOTE | 2017-03-28 16:21 | PD.CONS ---
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 need multiple weeks of intravenous antibiotics. This will likely be quite challenging in someone who has a long history of IV drug abuse. Preventing severe withdrawal symptoms while at the same time trying to keep him awake and alert will be challenging. If patient does not show signs of neurologic recovery in spite of aggressive care or, there is a sudden further decline in neurologic status, hospice care might be appropriate. . Code Status: Full Code (patient's mother tells me that the patient had asked not to be resuscitated with chest compressions or CPR. We will want to confirm this with the patient's father before changing a CODE STATUS order.) Plan == Code Status: The patient is currently full code. The patient's mother indicated that the patient had often said he would not want CPR or chest compressions should his heart stop. I am okay with this. However, I feel obligated to speak to the patient's father. == Decision making: The patient is incapacitated to make his own health care decisions. It is unclear if he will regain capacity to do so but it is not looking likely at this time. There is no written designation of health care surrogate. As the patient has no legal spouse, no adult children, proxy healthcare decision-making would fall to the patient's 2 parents. Unless one parent opts out and yields all decision making to the other, we would have to obtain consents from both parents for major procedures , for placement, etc. == Goals of medical treatment: Goals are aggressive at this point. Family is hoping that the patient will come around with aggressive care underway. However , patient's mother did say that Mitchel had indicated he would not want to be resuscitated with chest compressions and shock. Since decision making at this point involves legally involves both parents, I will want to speak to the patient's father for changing a CODE STATUS order. == Pain: Patient seems to have had some type of chronic pain for which he took oxycodone/acetaminophen 5-325 on a somewhat regular basis. Current sources of pain might include orotracheal tube; orogastric tube; Alex catheter ; vascular access catheters; restraints. Patient currently has an order for a fentanyl drip. No further recommendations at this time. == Dyspnea: Patient has some medial left lung base consolidationhe may have a pneumonia. Dyspnea is currently being managed by mechanical ventilation. No new recommendations at this time. == Encephalopathy: Patient may be experiencing some encephalopathy just due to the sepsis and this will likely clear if/when antibiotics are clearing the infection from the blood. Some encephalopathy, however, is likely due to the strokes. Unclear to what extent these might improve over time. == Palliative care will continue to follow to assist with symptom management and to further clarify goals of medical treatment as the clinical course evolves. . Time Spent Total Floor Time (mins): 90 (Total floor time includes chart review; patient examination; above-referenced family meeting; collaboration with primary nurse; discussion of resuscitation status; documentation.) Face to Face Time (mins): 10 Thank you for the opportunity to participate in the care of Mr. Coppola. . Attestation To help prompt me to consider important information that might be impacting today's encounter and assessment, information from prior notes written by myself or my colleagues may have been "brought forward" into today's note. My signature on this note, however, is an attestation that I personally performed the exam, history, and/or decision-making noted today, and, unless otherwise indicated, the interactions with patient, family, and staff as well as the review of records all occurred today. I also attest that the listed assessment and stated plan reflect my best clinical judgment today based on the combination of historical information, prior notes, and today's exam/ interactions. When time spent is documented, it refers only to time spent today by the signer, or if indicated, combined time spent today by collaborating physician/nurse practitioner. . . Lex Olguin MD Mar 28, 2017 16:21
--- NOTE | 2017-03-28 17:28 | RADRPT ---
EXAM DATE/TIME: 03/28/2017 09:01 [facility] COMPARISON: No previous studies available for comparison. INDICATIONS : Increased labs. MEDICAL HISTORY : Seizures. Dizziness. Depression. AVM. Cardiac disorders. SURGICAL HISTORY : AVM repair occipital. ENCOUNTER: Initial ACUITY: 1 day PAIN SCORE: Nonresponsive. LOCATION: Bilateral upper quadrant MEASUREMENTS: LIVER: 19.6 cm length COMMON DUCT: 4 mm RIGHT KIDNEY: 12.8 x 5.4 x 4.9 cm SPLEEN: 15.9 cm length FINDINGS: LIVER: Normal echotexture without focal lesion or ductal dilatation. COMMON DUCT: No intraluminal mass or stone visualized. GALLBLADDER: Contains no stones, demonstrates no wall thickening or pericholecystic fluid. PANCREAS: The visualized portions are within normal limits. RIGHT KIDNEY: No hydronephrosis, stone or mass. SPLEEN: Enlarged without focal lesion CONCLUSION: Splenomegaly. Otherwise focally unremarkable Hira Sanchez MD on March 28, 2017 at 17:24 Board Certified Radiologist. This report was verified electronically.
[2017-03-28] MEDS: OXACILLIN INJ 2 GM in SODIUM CHLORIDE 0.9% INJ 100 ML IV SCH ×2 (17:41→23:22)
[2017-03-28] MEDS: MEPERIDINE HCL 25 MG/ML VIAL IV PRN (17:56)
[2017-03-28] MEDS ORDERED: CISATRACURIUM BESYLATE 10 MG/5 ML VIAL IV PUSH PRN (18:00)
--- NOTE | 2017-03-28 18:15 | RADRPT ---
EXAM DATE/TIME: 03/28/2017 11:18 [facility] COMPARISON: CT BRAIN W/O CONTRAST, March 27, 2017, 20:59. INDICATIONS : Evaluate bleed RADIATION DOSE: 37.01 CTDIvol (mGy) MEDICAL HISTORY : AVM repair SURGICAL HISTORY : None. ENCOUNTER: Subsequent ACUITY: 4 - 6 days PAIN SCALE: Non-responsive LOCATION: cranial TECHNIQUE: Multiple contiguous axial images were obtained of the head. Using automated exposure control and adj ustment of the mA and/or kV according to patient size, radiation dose was kept as low as reasonably a chievable to obtain optimal diagnostic quality images. DICOM format image data is available electro nically for review and comparison. FINDINGS: CEREBRUM: Focal hypodensity has developed in the inferior right frontal lobe. There is no significant hyperdens ity suspicious for hemorrhage. Lesser hemisphere is unremarkable. POSTERIOR FOSSA: The cerebellum and brainstem are intact. The 4th ventricle is midline. The cerebellopontine angle i s unremarkable. EXTRACRANIAL: The visualized portion of the orbits is intact. SKULL: The calvaria is intact. No evidence of skull fracture. CONCLUSION: Acute hypodensity in the right frontal lobe characteristic of acute nonhemorrhagic. Otherwise stable evaluation. infarct. Chris Melara MD on March 28, 2017 at 18:12 Board Certified Radiologist. This report was verified electronically.
--- NOTE | 2017-03-28 18:53 | RADRPT ---
EXAM DATE/TIME: 03/28/2017 18:22 [facility] COMPARISON: No previous studies available for comparison. INDICATIONS : Abscess. Swelling to top of hand. MEDICAL HISTORY : None. SURGICAL HISTORY : None. ENCOUNTER: Initial ACUITY: 4 - 6 days PAIN SCORE: Non-responsive. LOCATION: Left upper extremity FINDINGS: Two view examination of the left hand demonstrates no soft tissue swelling, dislocation, or fracture. The joint spaces are maintained. Bony mineralization is normal. CONCLUSION: Unremarkable limited examination of the left hand. Hira Sanchez MD on March 28, 2017 at 18:51 Board Certified Radiologist. This report was verified electronically.
[2017-03-29] VITALS (19 sets, daily range): BP systolic 101–116; BP diastolic 52–59; PULSE 84–114; RESP 18–24; TEMP 97.5–102; O2SAT 90–100
[2017-03-29] MEDS: PIPERACIL-TAZO 4.5 GM PREMIX 100 ML IV SCH ×2 (02:48→09:58)
[2017-03-29] MEDS: OXACILLIN INJ 2 GM in SODIUM CHLORIDE 0.9% INJ 100 ML IV SCH ×6 (02:49→20:16)
[2017-03-29] MEDS: CHLORHEXIDINE GLUCONATE 2 % 1 PACK (2 CLOTHS)(taper/protocol) TOPICAL SCH (02:49)
[2017-03-29] MEDS: SODIUM CHLOR 0.9% 1000 ML INJ 1,000 ML IV SCH ×2 (02:50→10:58)
[2017-03-29] MEDS: RESP: ALBUTEROL 2.5 MG/IPRATROPIUM 0.5 MG NEB (SCH) INH ×4 (04:33→20:02)
--- NOTE | 2017-03-29 05:04 | RADRPT ---
EXAM DATE/TIME: 03/29/2017 03:49 [facility] COMPARISON: CHEST SINGLE AP, March 28, 2017, 9:57. INDICATIONS : Shortness of breath, possible pulmonary disease. MEDICAL HISTORY : AVM SURGICAL HISTORY : AVM Repair ENCOUNTER: Subsequent ACUITY: 3 days PAIN SCORE: Non-responsive. LOCATION: Bilateral chest FINDINGS: A single view of the chest demonstrates minimal bibasilar densities. Endotracheal tube, nasogastric t ube and left subclavian central line are stable position. Osseous structures are intact. CONCLUSION: 1. Minimal worsening bibasilar densities. Jose Pearson MD on March 29, 2017 at 5:02 Board Certified Radiologist. This report was verified electronically.
[2017-03-29] MEDS: PROPOFOL 1000 MG/100 ML INJ 100 ML IV SCH ×3 (05:09→20:29)
[2017-03-29] MEDS: INSULIN NovoLIN REGULAR SUPPLEMENTAL SCALE SQ SCH ×3 (05:15→17:44)
[2017-03-29 06:18] LABS: APTT (PATIENT) 31.3 SEC (24.3-30.1); INTERNATIONAL NORMALIZED RATIO 1.1 RATIO; PROTHROMBIN TIME - PATIENT 12.7 SEC (9.8-11.6)
[2017-03-29 06:19] LABS: AUTOMATED NEUTROPHIL # 8.1 TH/MM3 (1.8-7.7); BASOPHIL % 0.3 % (0.0-2.0); EOSINOPHIL # 0.1 TH/MM3 (0-0.4); HEMATOCRIT 30.2 % (39.0-51.0); LYMPH % 5.6 % (9.0-44.0); LYMPHOCYTE # 0.5 TH/MM3 (1.0-4.8); MEAN CELL VOLUME 83.8 FL (80.0-100.0); MEAN CORPUSCULAR HGB CONC 34.6 % (32.0-36.0); MONO % 6.3 % (0.0-8.0); NEUT % 86.8 % (16.0-70.0); PLATELET COUNT 48 TH/MM3 (150-450); RED CELL DISTRIBUTION WIDTH 13.8 % (11.6-17.2); WHITE BLOOD COUNT 9.3 TH/MM3 (4.0-11.0)
[2017-03-29 06:28] LABS: HEMO FLAGS AUTO DIFF
[2017-03-29 06:37] LABS: AST (GOT) 52 U/L (15-37); BICARBONATE 23.2 MEQ/L (21.0-32.0); BLOOD UREA NITROGEN 19 MG/DL (7-18); GLOMERULAR FILTRATION RATE 107 ML/MIN (>89); MAGNESIUM 2.3 MG/DL (1.5-2.5)
[2017-03-29 06:40] LABS: ALKALINE PHOSPHATASE 79 U/L (45-117); ALT (GPT) 41 U/L (12-78); ANION GAP 8 MEQ/L (5-15); CHLORIDE 108 MEQ/L (98-107); POTASSIUM 3.7 MEQ/L (3.5-5.1); SODIUM (NA) 139 MEQ/L (136-145); TOTAL BILIRUBIN ADULT 0.7 MG/DL (0.2-1.0)
[2017-03-29] MEDS ORDERED: PHARMACY ORDERED LAB ONE (09:45)
[2017-03-29] MEDS: CHLORHEXIDINE 0.12% (ORAL KIT) 15 ML CUP MT SCH ×2 (09:58→20:16)
[2017-03-29] MEDS: VANCOMYCIN 1,500 MG/NS 500 ML IV SCH ×2 (09:59)
[2017-03-29 10:27] LABS: PLATELET ESTIMATE SMEAR LOW (NORMAL); PLATELET MORPHOLOGY NORMAL (NORMAL); SCAN/DIFF AUTO DIFF CONFIRMED
[2017-03-29] MEDS: ACETAMINOPHEN 650 MG/20.3 ML UDC PO PRN (10:57)
[2017-03-29] MEDS: MEPERIDINE HCL 25 MG/ML VIAL IV PRN ×3 (10:58→22:00)
[2017-03-29] MEDS ORDERED: POTASSIUM CHLORIDE 25 MEQ EFFERVESCENT TAB PO ONE (11:30)
[2017-03-29] MEDS ORDERED: BUMETANIDE INJ 1 MG/4 ML VIAL IV PUSH ONE (11:30)
[2017-03-29] MEDS ORDERED: CISATRACURIUM BESYLATE 20 MG/10 ML VIAL IV PUSH PRN (11:45)
--- NOTE | 2017-03-29 12:00 | RADRPT ---
EXAM DATE/TIME: 03/29/2017 11:34 [facility] COMPARISON: CHEST SINGLE AP, March 29, 2017, 3:49. INDICATIONS : Shortness of breath. MEDICAL HISTORY : AVM. SURGICAL HISTORY : AVM Repair. ENCOUNTER: Subsequent ACUITY: 3 days PAIN SCORE: Non-responsive. LOCATION: Bilateral chest FINDINGS: A single AP semierect view of the chest was obtained and again demonstrates the endotracheal tube in place with the tip at the level of the thoracic inlet. A nasogastric tube is seen coursing through th e esophagus into the stomach. The left subclavian central venous line remains in place. There is incr eased hazy opacity in the perihilar regions and both lung bases. The left costophrenic angle appears blunted. The heart size is mildly prominent. There are multiple overlying electrocardiogram leads and oxygen tubing. CONCLUSION: 1. Interval increase in the hazy opacity in both lungs which is of concern for pulmonary edema which could be cardiogenic or noncardiogenic in origin. 2. Level small left effusion. Emanuel Roth MD on March 29, 2017 at 11:57 Board Certified Radiologist. This report was verified electronically.
--- NOTE | 2017-03-29 12:25 | HHI.CCPN ---
Subjective Remarks/Hospital Course This is a 36-year-old male with a history of IV drug abuse who originally presented to the hospital yesterday with complaints of chest pain but left AMA before being evaluated. He reports a net today brought in by EMS for altered mental status, left-sided paralysis, and rightward gaze. He was last seen normal last night. He was not protecting his area emergency department and was intubated by the emergency room physician for hypoxic and hypercarbic respiratory failure. He was febrile in the emergency department with a leukocytosis, lactic acidosis. CT head is positive for multiple small punctate hemorrhages. I was present for his bedside transthoracic echocardiogram which appears to be positive for a 1 x 1 cm mobile aortic valve vegetation with significant aortic regurgitation. 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 SUBJ 03/28: Remains intubated sedated with Fentanyl gtt. Flaccid L hemiparesis. Continues to spike fever, and remains encephalopathic indicating ongoing severe sepsis. P/E with Bubba [place] murmur. TTE personally reviewed. Evidence of AV vegetation with severe AI 03/29: Patient continues to be febrile with chills and rigor. 4 over 4 bottles staph aureus. Developed acute desaturation today, currently on 100% FiO2 and 10 PEEP. Repeat chest x-ray shows interval development of pulmonary edema and bilateral pleural effusions. Patient is developing decompensated heart failure secondary to severe aortic regurgitation. He is deemed not a candidate for surgery due to active drug use. I will start diuresis on him. Brother and mother updated at the bedside Objective Vital Signs Date Time Temp Pulse Resp B/P Pulse Ox O2 Delivery O2 Flow Rate FiO2 03/29/17 08:55 99 35 03/29/17 08:00 100.4 03/29/17 06:00 102 03/29/17 04:00 24 106/56 03/27/17 23:00 Ventilator 03/27/17 21:55 13 Intake and Output 03/28/17 03/28/17 03/28/17 07:59 15:59 23:59 Intake Total 406 ml 1465 ml 1884 ml Output Total 1150 ml 450 ml 350 ml Balance -744 ml 1015 ml 1534 ml Result Diagram: 03/29/17 0454 03/29/17 0454 Imaging Last Impressions Head CT 03/27/172052 Signed Impressions: Service Date/Time: March 20:59 - CONCLUSION: Small scattered cortical hemorrhages most prevalent right occipital region. Vahe Sanchez MD FACR Chest X-Ray 03/27/172052 Signed Impressions: Service Date/Time: March 21:09 - CONCLUSION: Minimal patchy airspace disease both lungs probable inflammatory process. Vahe Sanchez MD FACR Objective Remarks GENERAL: Young male, lying in bed, intubated, sedated, critically ill HEENT: Normocephalic. Atraumatic. Pupils equal, round, reactive, conjugate. Orotracheally intubated NECK: Trachea is midline. CHEST: Equal chest rise. Intubated. PRVC, 100% FiO2, PEEP 10. An entry diminished bilateral bases with scattered bilateral crackles CARDIOVASCULAR: Tachycardic rate, regular rhythm. Sinus by telemetry. Early diastolic (Bubba [place]) murmur ABDOMEN: Soft, nontender, nondistended. No guarding. MUSCULOSKELETAL: Pulses 2+. No peripheral edema. Positive for splinter hemorrhages. Also positive for evidence of IV needle radford particularly in the upper extremities NEUROLOGICAL: Sedated with Fentanyl, propofol. L gaze preference. Pupils sluggish reaction. Flaccid L hemiplegia. Purposefully moves right upper and lower extremity Urinary Catheter: Yes Assessment to: Continue Vascular Central Line Catheter: Yes Assessment to: Continue A/P Assessment and Plan Assessment: This is a 36yM with aortic valve infective endocarditis, significant aortic regurgitation, punctate intracerebral hemorrhages, L hemiplegia, troponin elevation, acute encephalopathy, severe sepsis, and acute hypoxic and hypercarbic respiratory failure. He remains critically ill at this time. Continue, IV ABX, frequent neuro checks, get MRI brain with and without contrast. avoid anticoagulation. ID, neurology and CT surgery following. Hold off cardiology consult was the patient is not a candidate for antiplatelet therapy or any intervention at this time due to punctate intracerebral hemorrhages Plan by systems: Neurologic: Acute encephalopathy Acute punctate intracerebral hemorrhages Septic intracerebral emboli, predominantly R frontal, insular cortex L Hemiplegia IV drug abuse Chronic opiates/Suboxone abuse Frequent neuro checks. MRI of brain with and without contrast 03/28 multiple punctate intracerebral hemorrhages, intracerebral emboli, predominantly R frontal, insular cortex Propofol/fentanyl for sedation vent synchrony Watch for withdrawal symptoms --No sedation vacation due to sever hypoxia --Intermittent neuromuscular paralysis for shivering and hypoxia --Neurology consulted Dr. Khan, hold antiplatelet therapy Respiratory: Acute hypoxic and hypercarbic respiratory failure Acute pulmonary edema Left base consolidation/pneumonia Vent bundle Head of bed at 30 Wean FiO2 for SPO2 greater than 90%. Currently on PRVC/AC FiO2 100% PEEP 10 --May need thoracentesis if not improving with Bumex Does not meet SBT criteria Nebs --Broad-spectrum antibiotics-see ID Cardiovascular: Aortic valve infective endocarditis Acute decompensated heart failure from severe AI Aortic regurgitation Severe sepsis Elevated troponin/NSTEMI -Elevated troponin likely demand ischemia and secondary to valvular lesion vs septic coronary emboli. trend troponins. cannot anticoagulate due to intracerebral hemorrhages. DC Maintenance fluids normal saline 150 cc an hour. IV Bumex 1 mg q12 with potassium supplements IV antibiotics as below 2-D echo hows 1x1 cm AV veg and mod to sev AI --Cardiothoracic surgery consulted-not a surgical candidate Renal: Place Alex, strict I's and O's, close monitoring of urine output given severe sepsis and valvulopathy --Strict I/Os FEN/GI: Acute protein calorie malnutritionmoderate Intravascular volume depletion Elevated LFTs Hep C Tube feeding, bowel regimen ICU electrolyte protocol Hepatitis panel-reactive for HepC Liver ultrasound-show splenomegaly Heme/ID: Aortic valve infective endocarditis Severe sepsis Thrombocytopenia Coagulopathylikely secondary to liver disease Trend coags Does not meet transfusion criteria at this time. INR is 1.4 Vancomycin with pharmacy dosing Zosyn 4.5 g IV every [address] García, added Oxacillin to above ABX --Thrombocytopenia most likely secondary to DIC Transfuse to keep >50,000 with intracerebral hemorrhages Endocrine: Hyperglycemia of critical illness --SSI, every 6, medium scale --Electrolyte replacement per protocol Prophylaxis: GI Prophylaxis Pepcid twice a day DVT Prophylaxis -- SCDs Pharmacologic DVT prophylaxis contraindicated given intracerebral hemorrhages Lines: L subclavian central line placed 03/28/17 Alex Dispo: Admit to the ICU. Remains critically ill This patient remains critically ill with one or more organ systems which are or may become a threat to life. I have spent in excess of 425 minutes discontinuously in the care and management of this patient. This time is exclusive of procedures, and includes, but is not limited to, evaluation of the patient, review of the medical record, discussions with family, consultants, nursing staff, or respiratory therapy, and documentation in the medical record. Leonard Iniguez MD Mar 29, 2017 12:24
[2017-03-29] MEDS: ROCURONIUM INJ 50 MG/5 ML VIAL IV PRN ×2 (13:30→18:30)
--- NOTE | 2017-03-29 16:32 | HHI.IDPN ---
Subjective Subjective Remarks ID X cover for Dr García chart was reviewed Most of the history was obtained by review of medical records as patient is currently intubated and no family in the room. Mr. Coppola is a 36 y/o male with a long history of IV drug abuse , seizure disorder, who was brought to [facility] Emergency Department by ambulance from his home on 03/27/17 because of altered mental status, left-sided paralysis , and rightward gaze. He was intubated and remains on vent He was w/u revelead MRI with multiple embolic strokes, has aortic valve vegtetaion with severe AI and + blood cultures for MSSA Today he reamins very unstable fro resp status, on 80% of FIO2, low grade fever UOP decent Has tachycardia Antibiotics oxacillin gent vanco Allergies: Coded Allergies: Iohexol (OMNIPAQUE) (Verified Allergy, Mild, hives, 03/27/17) very mild hives, no itching. Objective . Vital Signs Date Time Temp Pulse Resp B/P Pulse Ox O2 Delivery O2 Flow Rate FiO2 03/29/17 15:47 95 70 03/29/17 12:00 35 03/29/17 12:00 88 03/29/17 12:00 97.5 88 19 106/52 98 03/29/17 12:00 97.5 03/29/17 11:00 90 100 03/29/17 10:00 96 03/29/17 08:55 99 35 03/29/17 08:00 92 03/29/17 08:00 100.4 03/29/17 08:00 100.4 92 18 113/59 98 03/29/17 08:00 35 03/29/17 06:00 102 03/29/17 04:33 98 35 03/29/17 04:00 35 03/29/17 04:00 100.0 03/29/17 04:00 100.0 93 24 106/56 97 03/29/17 04:00 92 03/29/17 02:00 93 03/29/17 01:06 97 35 03/29/17 00:00 35 03/29/17 00:00 101.0 99 18 116/56 100 03/29/17 00:00 102.0 03/29/17 00:00 99 03/28/17 22:16 100 35 03/28/17 22:00 94 03/28/17 20:00 85 03/28/17 20:00 35 03/28/17 20:00 102.0 03/28/17 20:00 102.0 85 14 106/56 100 03/28/17 18:00 92 03/28/17 18:00 100.3 03/28/17 17:30 100.4 03/28/17 17:00 101.1 92 15 107/53 94 03/28/17 03/28/17 03/29/17 14:59 22:59 06:59 Intake Total 1465 ml 1884 ml 1973 ml Output Total 1600 ml 350 ml 350 ml Balance -135 ml 1534 ml 1623 ml Intake Oral 0 ml 0 ml IV Total 1465 ml 1672 ml 1792 ml Tube Feeding 212 ml 181 ml Other 0 ml Output Urine Total 1600 ml 350 ml 350 ml # Bowel Movements 1 0 0 . Laboratory Tests Test 03/27/17 03/28/17 03/29/17 21:00 04:34 04:54 White Blood Count 18.6 TH/MM3 18.8 TH/MM3 9.3 TH/MM3 Red Blood Count 4.33 MIL/MM3 4.13 MIL/MM3 3.60 MIL/MM3 Hemoglobin 12.2 GM/DL 11.8 GM/DL 10.4 GM/DL Hematocrit 36.8 % 34.2 % 30.2 % Mean Corpuscular Volume 84.9 FL 82.9 FL 83.8 FL Mean Corpuscular Hemoglobin 28.1 PG 28.6 PG 29.0 PG Mean Corpuscular Hemoglobin 33.2 % 34.5 % 34.6 % Concent Red Cell Distribution Width 13.7 % 13.8 % 13.8 % Platelet Count 114 TH/MM3 81 TH/MM3 48 TH/MM3 Mean Platelet Volume 8.4 FL 9.0 FL 9.9 FL Neutrophils (%) (Auto) 96.2 % 86.8 % Lymphocytes (%) (Auto) 0.8 % 5.6 % Monocytes (%) (Auto) 2.4 % 6.3 % Eosinophils (%) (Auto) 0.3 % 1.0 % Basophils (%) (Auto) 0.3 % 0.3 % Neutrophils # (Auto) 17.9 TH/MM3 8.1 TH/MM3 Lymphocytes # (Auto) 0.1 TH/MM3 0.5 TH/MM3 Monocytes # (Auto) 0.5 TH/MM3 0.6 TH/MM3 Eosinophils # (Auto) 0.1 TH/MM3 0.1 TH/MM3 Basophils # (Auto) 0.1 TH/MM3 0.0 TH/MM3 CBC Comment DIFF FINAL AUTO DIFF Differential Comment AUTO DIFF CONFIRMED Platelet Estimate LOW Platelet Morphology Comment NORMAL Laboratory Tests Test 03/27/17 03/27/17 03/28/17 03/28/17 21:00 23:05 04:34 15:50 Sodium Level 134 MEQ/L 134 MEQ/L Potassium Level 3.4 MEQ/L 3.6 MEQ/L Chloride Level 103 MEQ/L 102 MEQ/L Carbon Dioxide Level 22.1 MEQ/L 20.2 MEQ/L Anion Gap 9 MEQ/L 12 MEQ/L Blood Urea Nitrogen 24 MG/DL 24 MG/DL Creatinine 1.03 MG/DL 0.98 MG/DL Estimat Glomerular Filtration 82 ML/MIN 87 ML/MIN Rate Random Glucose 136 MG/DL 151 MG/DL Lactic Acid Level 2.3 mmol/L 1.7 mmol/L Calcium Level 7.8 MG/DL 7.6 MG/DL Total Bilirubin 1.5 MG/DL Aspartate Amino Transf 76 U/L (AST/SGOT) Alanine Aminotransferase 56 U/L (ALT/SGPT) Alkaline Phosphatase 122 U/L Ammonia LESS THAN 10 MCMOL/L Total Creatine Kinase 152 U/L Creatine Kinase MB 2.0 NG/ML Troponin I 4.22 NG/ML 4.12 NG/ML 2.80 NG/ML Total Protein 6.6 GM/DL Albumin 2.8 GM/DL C-Reactive Protein 20.00 MG/DL Test 03/28/17 03/29/17 23:56 04:54 Troponin I 2.30 NG/ML Sodium Level 139 MEQ/L Potassium Level 3.7 MEQ/L Chloride Level 108 MEQ/L Carbon Dioxide Level 23.2 MEQ/L Anion Gap 8 MEQ/L Blood Urea Nitrogen 19 MG/DL Creatinine 0.82 MG/DL Estimat Glomerular Filtration 107 ML/MIN Rate Random Glucose 109 MG/DL Calcium Level 7.8 MG/DL Magnesium Level 2.3 MG/DL Total Bilirubin 0.7 MG/DL Aspartate Amino Transf 52 U/L (AST/SGOT) Alanine Aminotransferase 41 U/L (ALT/SGPT) Alkaline Phosphatase 79 U/L Total Protein 5.4 GM/DL Albumin 2.2 GM/DL Microbiology Date/Time Procedure Status Source Growth 03/27/17 20:35 Aerobic Blood Culture - Preliminary Resulted Blood Peripheral Staphylococcus Aureus 03/27/17 20:35 Anaerobic Blood Culture - Preliminary Resulted Staphylococcus Aureus 03/27/17 21:00 Aerobic Blood Culture - Preliminary Resulted Blood Peripheral Staphylococcus Aureus 03/27/17 21:00 Anaerobic Blood Culture - Preliminary Resulted Staphylococcus Aureus 03/27/17 21:28 Urine Culture - Final Complete Urine Catheterized Urine Staphylococcus Aureus 03/28/17 09:00 Gram Stain - Final Resulted Sputum Endotracheal 03/28/17 09:00 Sputum Culture - Preliminary Resulted Sputum Endotracheal IMMATURE GROWTH - REINCUBATE 03/28/17 23:05 Aerobic Blood Culture - Preliminary Resulted Blood Peripheral NO GROWTH IN 1 DAY 03/28/17 23:05 Anaerobic Blood Culture - Preliminary Resulted Blood Peripheral NO GROWTH IN 1 DAY 03/29/17 03:20 Aerobic Blood Culture Received Blood Peripheral Pending 03/29/17 03:20 Anaerobic Blood Culture Received Blood Peripheral Pending Imaging Last Impressions Chest X-Ray 03/29/17 0600 Signed Impressions: Service Date/Time: Wednesday, March 29, 2017 03:49 - CONCLUSION: 1. Minimal worsening bibasilar densities. Jose Pearson MD Head CT 03/28/17 0900 Signed Impressions: Service Date/Time: Tuesday, March 28, 2017 11:18 - CONCLUSION: Acute hypodensity in the right frontal lobe characteristic of acute nonhemorrhagic. Otherwise stable evaluation. infarct. Chris Melara MD Liver Ultrasound 03/28/17 0000 Signed Impressions: Service Date/Time: Tuesday, March 28, 2017 09:01 - CONCLUSION: Splenomegaly. Otherwise focally unremarkable Hira Sanchez MD Hand X-Ray 03/28/17 0000 Signed Impressions: Service Date/Time: Tuesday, March 28, 2017 18:22 - CONCLUSION: Unremarkable limited examination of the left hand. Hira Sanchez MD Brain MRI 03/28/17 0000 Signed Impressions: Service Date/Time: Tuesday, March 28, 2017 10:46 - CONCLUSION: Scattered areas of cortical and white matter infarction with associated petechial hemorrhages. Hira Sanchez MD Physical Exam GENERAL: Thin built patient, in no apparent distress. Sedated SKIN: No rashes, ecchymoses or lesions. Cool and dry. HEAD: Atraumatic. Normocephalic. No temporal or scalp tenderness. EYES: Pupils equal round and reactive. Extraocular motions intact. No scleral icterus. No injection or drainage. One petechia on R lower lid present ENT: Nose without bleeding, purulent drainage or septal hematoma. Throat without erythema, tonsillar hypertrophy or exudate. Uvula midline. Airway patent. NECK: Trachea midline. Supple, nontender, no meningeal signs. CARDIOVASCULAR: Systolic murmur gr II-III noted. No thrill or bruit noted. Perifery well perused RESPIRATORY: Clear to auscultation. Breath sounds equal bilaterally. No wheezes , rales, or rhonchi. GASTROINTESTINAL: Abdomen soft, non-tender, nondistended. MUSCULOSKELETAL: On the left upper extremity dorsum there is evidence of cellulitis and possibly some induration on the second and third knuckle. Overall the left hand appeared to be slightly more swollen than the right side. + Generalysed edema, more prominent on bl hands NEUROLOGICAL: Sedated. Pupils equal and reacting to light. Left-sided upper and lower extremity deficit noted. Psych could not be assessed IV line sites with no evidence of infection. 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 not a candidate for surgery due to active drug use MSSA bacteremia (microscan confirmed ) Acute resp failure on vent Acute cerebral infarction: likely ERIC related septic emboli. Acute NV likely ERIC related septic emboli. acute metabolic encephalopathy: likely related to stroke, infection. Persistent fevers: infection,infarcts, drugs, dissemination of infection, untapped sources of infection like distant abscesses in lung or abdomen. Recs dc Vanco IV (follow susceptibility to stop if it is confirmed MSSA) dc Zosyn IV Cont Oxacillin IV May need Genta IV if bacteremia persists after 48 hours of Oxacillin start or depending on clinical condition. CT C/A/P with contrast in am to r/o septic embolization to lungs and liver/ spleen. Follow Cr and UO to assess plan in am regarding this imaging recommendation. Due to multiple imaging will hold off on imaging tonight due to contrast related kidney damage concerns. Follow cultures Follow clinically. Imaging reviewed. Critically ill. Katie Raymundo MD Mar 29, 2017 16:32
[2017-03-29] MEDS: fentaNYL DRIP 250 ML IV SCH (16:36)
[2017-03-29] MEDS: BUMETANIDE INJ 1 MG/4 ML VIAL IV PUSH SCH (17:23)
[2017-03-30] VITALS (19 sets, daily range): BP systolic 98–111; BP diastolic 52–58; PULSE 83–119; RESP 14–18; TEMP 96.6–99.9; O2SAT 90–100
[2017-03-30] MEDS: OXACILLIN INJ 2 GM in SODIUM CHLORIDE 0.9% INJ 100 ML IV SCH ×6 (02:06→20:39)
[2017-03-30] MEDS: ACETAMINOPHEN 650 MG/20.3 ML UDC PO PRN (02:09)
[2017-03-30] MEDS: MEPERIDINE HCL 25 MG/ML VIAL IV PRN (02:09)
[2017-03-30] MEDS: CHLORHEXIDINE GLUCONATE 2 % 1 PACK (2 CLOTHS)(taper/protocol) TOPICAL SCH (02:14)
[2017-03-30] MEDS: RESP: ALBUTEROL 2.5 MG/IPRATROPIUM 0.5 MG NEB (SCH) INH ×4 (04:14→19:38)
[2017-03-30] MEDS: PROPOFOL 1000 MG/100 ML INJ 100 ML IV SCH ×3 (04:23→19:56)
[2017-03-30 05:10] LABS: AUTOMATED NEUTROPHIL # 9.5 TH/MM3 (1.8-7.7); BASOPHIL % 0.2 % (0.0-2.0); EOSINOPHIL # 0.1 TH/MM3 (0-0.4); EOSINOPHIL % 1.1 % (0.0-4.0); HEMATOCRIT 31.7 % (39.0-51.0); LYMPH % 5.1 % (9.0-44.0); LYMPHOCYTE # 0.6 TH/MM3 (1.0-4.8); MEAN CELL VOLUME 83.9 FL (80.0-100.0); MEAN CORPUSCULAR HEMOGLOBIN 28.9 PG (27.0-34.0); MEAN CORPUSCULAR HGB CONC 34.4 % (32.0-36.0); MONO % 6.4 % (0.0-8.0); NEUT % 87.2 % (16.0-70.0); PLATELET COUNT 60 TH/MM3 (150-450); RED BLOOD COUNT 3.78 MIL/MM3 (4.50-5.90); WHITE BLOOD COUNT 10.9 TH/MM3 (4.0-11.0)
[2017-03-30 05:12] LABS: HEMO FLAGS DIFF FINAL
[2017-03-30 05:21] LABS: ALT (GPT) 36 U/L (12-78); ANION GAP 8 MEQ/L (5-15); AST (GOT) 62 U/L (15-37); BLOOD UREA NITROGEN 24 MG/DL (7-18); CHLORIDE 108 MEQ/L (98-107); GLOMERULAR FILTRATION RATE 120 ML/MIN (>89); MAGNESIUM 2.3 MG/DL (1.5-2.5); POTASSIUM 3.2 MEQ/L (3.5-5.1); SODIUM (NA) 141 MEQ/L (136-145)
[2017-03-30 05:23] LABS: ALKALINE PHOSPHATASE 93 U/L (45-117); TOTAL BILIRUBIN ADULT 0.6 MG/DL (0.2-1.0)
[2017-03-30 05:31] LABS: INTERNATIONAL NORMALIZED RATIO 1.1 RATIO; PROTHROMBIN TIME - PATIENT 12.2 SEC (9.8-11.6)
[2017-03-30] MEDS: INSULIN NovoLIN REGULAR SUPPLEMENTAL SCALE SQ SCH ×4 (06:00→17:20)
--- NOTE | 2017-03-30 06:01 | RADRPT ---
EXAM DATE/TIME: 03/30/2017 03:39 [facility] COMPARISON: CHEST SINGLE AP, March 29, 2017, 11:34. INDICATIONS : Shortness of breath, possible pulmonary disease. MEDICAL HISTORY : AVM SURGICAL HISTORY : AVM repair ENCOUNTER: Subsequent ACUITY: 4 - 6 days PAIN SCORE: Non-responsive. LOCATION: Bilateral chest FINDINGS: A single view of the chest demonstrates bilateral perihilar airspace disease slightly worsened on cur rent study. Heart normal in size. Endotracheal tube, nasogastric tube and left subclavian central josé miguel e unchanged in position. The cardiomediastinal contours are unremarkable. Osseous structures are int act. CONCLUSION: Slight worsening bilateral airspace disease. Jose Pearson MD on March 30, 2017 at 5:58 Board Certified Radiologist. This report was verified electronically.
[2017-03-30] MEDS: BUMETANIDE INJ 1 MG/4 ML VIAL IV PUSH SCH ×2 (08:56→17:17)
[2017-03-30] MEDS: CHLORHEXIDINE 0.12% (ORAL KIT) 15 ML CUP MT SCH ×2 (08:56→19:56)
[2017-03-30] MEDS: fentaNYL DRIP 250 ML IV SCH (08:57)
[2017-03-30] MEDS: POTASSIUM CHLORIDE 25 MEQ EFFERVESCENT TAB PO SCH (08:59)
--- NOTE | 2017-03-30 14:33 | HHI.CCPN ---
Subjective Remarks/Hospital Course This is a 36-year-old male with a history of IV drug abuse who originally presented to the hospital yesterday with complaints of chest pain but left AMA before being evaluated. He reports a net today brought in by EMS for altered mental status, left-sided paralysis, and rightward gaze. He was last seen normal last night. He was not protecting his area emergency department and was intubated by the emergency room physician for hypoxic and hypercarbic respiratory failure. He was febrile in the emergency department with a leukocytosis, lactic acidosis. CT head is positive for multiple small punctate hemorrhages. I was present for his bedside transthoracic echocardiogram which appears to be positive for a 1 x 1 cm mobile aortic valve vegetation with significant aortic regurgitation. 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 SUBJ 03/28: Remains intubated sedated with Fentanyl gtt. Flaccid L hemiparesis. Continues to spike fever, and remains encephalopathic indicating ongoing severe sepsis. P/E with Bubba Simpson murmur. TTE personally reviewed. Evidence of AV vegetation with severe AI 03/29: Patient continues to be febrile with chills and rigor. 4 over 4 bottles staph aureus. Developed acute desaturation today, currently on 100% FiO2 and 10 PEEP. Repeat chest x-ray shows interval development of pulmonary edema and bilateral pleural effusions. Patient is developing decompensated heart failure secondary to severe aortic regurgitation. He is deemed not a candidate for surgery due to active drug use. I will start diuresis on him. Brother and mother updated at the bedside 03/30: Remains intubated sedated. Chest x-ray shows slight improvement with diuresis. Increase Bumex to 2 mg IV every 12. Withdraws right upper and lower extremities to pain no spontaneous eye opening. Blood cultures showed persistent gram-positive bacteremia. Prognosis remains poor Objective Vital Signs Date Time Temp Pulse Resp B/P Pulse Ox O2 Delivery O2 Flow Rate FiO2 03/30/17 10:03 97 35 03/30/17 08:00 96.6 96 17 110/58 03/27/17 23:00 Ventilator 03/27/17 21:55 13 Intake and Output 03/29/17 03/29/17 03/30/17 08:00 16:00 00:00 Intake Total 1973 ml 1706 ml 839 ml Output Total 350 ml 600 ml 1200 ml Balance 1623 ml 1106 ml -361 ml Result Diagram: 03/30/17 0422 03/30/17 0422 Other Results Microbiology Date/Time Procedure Status Source Growth 03/27/17 20:35 Aerobic Blood Culture - Final Complete Blood Peripheral Staphylococcus Aureus 03/27/17 20:35 Anaerobic Blood Culture - Final Complete Staphylococcus Aureus 03/27/17 21:00 Aerobic Blood Culture - Final Complete Blood Peripheral Staphylococcus Aureus 03/27/17 21:00 Anaerobic Blood Culture - Final Complete Staphylococcus Aureus 03/27/17 21:28 Urine Culture - Final Complete Urine Catheterized Urine Staphylococcus Aureus Imaging Last Impressions Head CT 03/27/172052 Signed Impressions: Service Date/Time: March 20:59 - CONCLUSION: Small scattered cortical hemorrhages most prevalent right occipital region. Vahe Sanchez MD FACR Chest X-Ray 03/27/172052 Signed Impressions: Service Date/Time: March 21:09 - CONCLUSION: Minimal patchy airspace disease both lungs probable inflammatory process. Vahe Sanchez MD FACR Objective Remarks GENERAL: Young male, lying in bed, intubated, sedated, critically ill HEENT: Normocephalic. Atraumatic. Pupils equal, round, reactive, conjugate. Orotracheally intubated NECK: Trachea is midline. CHEST: Equal chest rise. Intubated. PRVC, 40% FiO2, PEEP 8. Air entry diminished bilateral bases with scattered bilateral basilar crackles CARDIOVASCULAR: Tachycardic rate, regular rhythm. Sinus by telemetry. Early diastolic (Bubba Simpson) murmur ABDOMEN: Soft, nontender, nondistended. No guarding. MUSCULOSKELETAL: Pulses 2+. No peripheral edema. Positive for splinter hemorrhages. Also positive for evidence of IV needle radford particularly in the upper extremities NEUROLOGICAL: Sedated with Fentanyl, propofol. L gaze preference. Pupils sluggish reaction. Flaccid L hemiplegia. Purposefully moves right upper and lower extremity, withdraws to pain Urinary Catheter: Yes Assessment to: Continue Vascular Central Line Catheter: Yes Assessment to: Continue A/P Assessment and Plan Assessment: This is a 36yM with aortic valve infective endocarditis, significant aortic regurgitation, punctate intracerebral hemorrhages, L hemiplegia, troponin elevation, acute encephalopathy, severe sepsis, and acute hypoxic and hypercarbic respiratory failure. He remains critically ill at this time. Continue, IV ABX, frequent neuro checks, MRI brain shows multiple embolic strokes with petechial hemorrhages. avoid anticoagulation. ID, neurology and CT surgery following. Hold off cardiology consult was the patient is not a candidate for antiplatelet therapy or any intervention at this time due to punctate intracerebral hemorrhages Plan by systems: Neurologic: Acute encephalopathy Acute punctate intracerebral hemorrhages Septic intracerebral emboli, predominantly R frontal, insular cortex L Hemiplegia IV drug abuse Chronic opiates/Suboxone abuse Frequent neuro checks. MRI of brain with and without contrast 03/28 multiple punctate intracerebral hemorrhages, intracerebral emboli, predominantly R frontal, insular cortex Propofol/fentanyl for sedation vent synchrony. Daily sedation vacation as tolerated Watch for withdrawal symptoms --Intermittent neuromuscular paralysis for shivering and hypoxia --Neurology consulted Dr. Khan, hold antiplatelet therapy Respiratory: Acute hypoxic and hypercarbic respiratory failure Acute pulmonary edema Left base consolidation/pneumonia Vent bundle, Head of bed at 30 Wean FiO2 for SPO2 greater than 90%. Currently on PRVC/AC FiO2 40% PEEP 8 --Continue spontaneous breathing trials without extubation Nebs --Broad-spectrum antibiotics-see ID Cardiovascular: Aortic valve infective endocarditis Acute decompensated heart failure from severe AI Aortic regurgitation Elevated troponin/NSTEMI -Elevated troponin likely demand ischemia and septic coronary emboli. trend troponins. cannot anticoagulate due to intracerebral hemorrhages. DC Maintenance fluids normal saline 150 cc an hour. IV Bumex 2 mg q12 with potassium supplements IV antibiotics as below 2-D echo shows 1x1 cm AV veg and mod to sev AI --Cardiothoracic surgery consulted-not a surgical candidate Renal: Alex, strict I's and O's, close monitoring of urine output given severe sepsis and valvulopathy. Strict I/Os FEN/GI: Acute protein calorie malnutritionmoderate Intravascular volume depletion Elevated LFTs Hep C Tube feeding, bowel regimen ICU electrolyte protocol Hepatitis panel-reactive for HepC Liver ultrasound-show splenomegaly Heme/ID: Aortic valve infective endocarditis Severe sepsis Thrombocytopenia Coagulopathylikely secondary to liver disease Trend coags, does not meet transfusion criteria at this time. INR is 1.4 Vancomycin with pharmacy dosing Continue Oxacillin per ID --Thrombocytopenia most likely secondary to DIC Transfuse to keep >50,000 with intracerebral hemorrhages Endocrine: Hyperglycemia of critical illness --SSI, every 6, medium scale --Electrolyte replacement per protocol Prophylaxis: GI Prophylaxis Pepcid twice a day DVT Prophylaxis -- SCDs Pharmacologic DVT prophylaxis contraindicated given intracerebral hemorrhages, thrombocytopenia Lines: L subclavian central line placed 03/28/17 Alex Dispo: Admit to the ICU. Remains critically ill This patient remains critically ill with one or more organ systems which are or may become a threat to life. I have spent in excess of 425 minutes discontinuously in the care and management of this patient. This time is exclusive of procedures, and includes, but is not limited to, evaluation of the patient, review of the medical record, discussions with family, consultants, nursing staff, or respiratory therapy, and documentation in the medical record. Leonard Iniguez MD Mar 30, 2017 14:33
[2017-03-30 19:25] LABS: BLOOD GAS BASE EXCESS 2.6 mmol/L (-2-2); BLOOD GAS CARBOXYHEMOGLOBIN 0.8 % (0-4); BLOOD GAS HCO3 26 mmol/L (22-26); BLOOD GAS METHEMOGLOBIN 1.4 % (0-2); BLOOD GAS O2 HGB SATURATION 98 % (90-100); BLOOD GAS OXYGEN CONTENT 16.2 Vol % (12.0-20.0); BLOOD GAS PCO2 34 mmHg (38-42); BLOOD GAS PO2 467 mmHg (61-120); BLOOD GAS TOTAL HGB 10.9 G/DL (12.0-16.0); CRITICAL VALUE NO; DRAW SITE RT RADIAL; FIO2 50 %; NUMBER OF ARTERIAL PUNCTURES 1; OXYGEN DEVICE VENTILATOR; STAT YES; TEMP CORR TO 98.6; ULNAR PULSE PRESENT; VENT SETTINGS AC15/600/+8
--- NOTE | 2017-03-30 19:31 | RADRPT ---
EXAM DATE/TIME: 03/30/2017 18:49 [facility] COMPARISON: CHEST SINGLE AP, March 29, 2017, 11:34. CHEST SINGLE AP, March 30, 2017, 3:39. INDICATIONS : Short of breath. MEDICAL HISTORY : AVM SURGICAL HISTORY : AVM repair. ENCOUNTER: Subsequent ACUITY: 4 - 6 days PAIN SCORE: 0/10 LOCATION: Bilateral chest FINDINGS: Single AP view of the chest. Endotracheal tube, nasogastric tube, left subclavian central venous cath eter remain in place. Bilateral lower lung consolidation is slightly decreased on the left and unchan ged on the right. No evidence of pleural effusion or pneumothorax. CONCLUSION: Persistent bilateral pulmonary opacity with slight decrease on the left. Harpreet Corley MD on March 30, 2017 at 19:27 Board Certified Radiologist. This report was verified electronically.
[2017-03-30] MEDS ORDERED: Gentamicin Consult Pharmacy 1 EA OTHER SCH (21:45)
--- NOTE | 2017-03-30 21:48 | HHI.IDPN ---
Subjective Subjective Remarks ID X cover delaeyd entry - pt was seen earlier today artound 1700 Remains on vent Minimal enurological respons off sedation: not opening eyes, not following commands afebrile persistent MSSA bactermia requires less FiO2 Antibiotics oxacillin Allergies: Coded Allergies: Iohexol (OMNIPAQUE) (Verified Allergy, Mild, hives, 03/27/17) very mild hives, no itching. Objective . Vital Signs Date Time Temp Pulse Resp B/P Pulse Ox O2 Delivery O2 Flow Rate FiO2 03/30/17 19:39 100 40 03/30/17 18:19 90 40 03/30/17 18:00 119 03/30/17 16:00 99.8 03/30/17 16:00 99.8 99 15 110/53 100 03/30/17 16:00 99 03/30/17 16:00 35 03/30/17 14:35 94 40 03/30/17 14:35 35 03/30/17 14:00 116 03/30/17 12:00 99.3 03/30/17 12:00 99.3 102 14 111/55 93 03/30/17 12:00 35 03/30/17 12:00 102 03/30/17 10:03 97 35 03/30/17 10:00 105 03/30/17 08:00 99.0 03/30/17 08:00 99.0 96 17 110/58 97 03/30/17 08:00 45 03/30/17 08:00 96 03/30/17 07:12 91 35 03/30/17 06:00 97 03/30/17 04:15 100 45 03/30/17 04:00 45 03/30/17 04:00 97.7 03/30/17 04:00 83 03/30/17 04:00 97.7 83 16 98/52 100 03/30/17 02:00 106 03/30/17 00:00 70 03/30/17 00:00 99.9 03/30/17 00:00 99.9 104 18 109/54 100 03/30/17 00:00 104 03/29/17 23:51 99 60 03/29/17 22:00 114 03/29/17 03/29/17 03/30/17 15:00 23:00 07:00 Intake Total 1706 ml 839 ml 684 ml Output Total 600 ml 1200 ml 550 ml Balance 1106 ml -361 ml 134 ml IV Total 1497 ml 542 ml 390 ml Tube Feeding 209 ml 297 ml 234 ml Other 60 ml Output Urine Total 600 ml 1200 ml 550 ml # Bowel Movements 0 . Laboratory Tests Test 03/29/17 03/30/17 04:54 04:22 White Blood Count 9.3 TH/MM3 10.9 TH/MM3 Red Blood Count 3.60 MIL/MM3 3.78 MIL/MM3 Hemoglobin 10.4 GM/DL 10.9 GM/DL Hematocrit 30.2 % 31.7 % Mean Corpuscular Volume 83.8 FL 83.9 FL Mean Corpuscular Hemoglobin 29.0 PG 28.9 PG Mean Corpuscular Hemoglobin 34.6 % 34.4 % Concent Red Cell Distribution Width 13.8 % 14.0 % Platelet Count 48 TH/MM3 60 TH/MM3 Mean Platelet Volume 9.9 FL 9.2 FL Neutrophils (%) (Auto) 86.8 % 87.2 % Lymphocytes (%) (Auto) 5.6 % 5.1 % Monocytes (%) (Auto) 6.3 % 6.4 % Eosinophils (%) (Auto) 1.0 % 1.1 % Basophils (%) (Auto) 0.3 % 0.2 % Neutrophils # (Auto) 8.1 TH/MM3 9.5 TH/MM3 Lymphocytes # (Auto) 0.5 TH/MM3 0.6 TH/MM3 Monocytes # (Auto) 0.6 TH/MM3 0.7 TH/MM3 Eosinophils # (Auto) 0.1 TH/MM3 0.1 TH/MM3 Basophils # (Auto) 0.0 TH/MM3 0.0 TH/MM3 CBC Comment AUTO DIFF DIFF FINAL Differential Comment AUTO DIFF CONFIRMED Platelet Estimate LOW Platelet Morphology Comment NORMAL Laboratory Tests Test 03/28/17 03/29/17 03/30/17 23:56 04:54 04:22 Troponin I 2.30 NG/ML Sodium Level 139 MEQ/L 141 MEQ/L Potassium Level 3.7 MEQ/L 3.2 MEQ/L Chloride Level 108 MEQ/L 108 MEQ/L Carbon Dioxide Level 23.2 MEQ/L 25.0 MEQ/L Anion Gap 8 MEQ/L 8 MEQ/L Blood Urea Nitrogen 19 MG/DL 24 MG/DL Creatinine 0.82 MG/DL 0.74 MG/DL Estimat Glomerular Filtration 107 ML/MIN 120 ML/MIN Rate Random Glucose 109 MG/DL 86 MG/DL Calcium Level 7.8 MG/DL 8.1 MG/DL Magnesium Level 2.3 MG/DL 2.3 MG/DL Total Bilirubin 0.7 MG/DL 0.6 MG/DL Aspartate Amino Transf 52 U/L 62 U/L (AST/SGOT) Alanine Aminotransferase 41 U/L 36 U/L (ALT/SGPT) Alkaline Phosphatase 79 U/L 93 U/L Total Protein 5.4 GM/DL 5.7 GM/DL Albumin 2.2 GM/DL 2.2 GM/DL Microbiology Date/Time Procedure Status Source Growth 03/28/17 09:00 Gram Stain - Final Resulted Sputum Endotracheal 03/28/17 09:00 Sputum Culture - Preliminary Resulted Staphylococcus Aureus 03/28/17 23:05 Aerobic Blood Culture - Preliminary Resulted Blood Peripheral Gram Positive Cocci 03/28/17 23:05 Anaerobic Blood Culture - Preliminary Resulted Blood Peripheral NO GROWTH IN 2 DAYS 03/29/17 03:20 Aerobic Blood Culture - Preliminary Resulted Blood Peripheral Gram Positive Cocci 03/29/17 03:20 Anaerobic Blood Culture - Preliminary Resulted Blood Peripheral NO GROWTH IN 1 DAY Imaging Last Impressions Chest X-Ray 03/30/17 0600 Signed Impressions: Service Date/Time: Thursday, March 30, 2017 03:39 - CONCLUSION: Slight worsening bilateral airspace disease. Jose Pearson MD Head CT 03/28/17 0900 Signed Impressions: Service Date/Time: Tuesday, March 28, 2017 11:18 - CONCLUSION: Acute hypodensity in the right frontal lobe characteristic of acute nonhemorrhagic. Otherwise stable evaluation. infarct. Chris Melara MD Liver Ultrasound 03/28/17 0000 Signed Impressions: Service Date/Time: Tuesday, March 28, 2017 09:01 - CONCLUSION: Splenomegaly. Otherwise focally unremarkable Hira Sanchez MD Hand X-Ray 03/28/17 0000 Signed Impressions: Service Date/Time: Tuesday, March 28, 2017 18:22 - CONCLUSION: Unremarkable limited examination of the left hand. Hira Sanchez MD Brain MRI 03/28/17 0000 Signed Impressions: Service Date/Time: Tuesday, March 28, 2017 10:46 - CONCLUSION: Scattered areas of cortical and white matter infarction with associated petechial hemorrhages. Hira Sanchez MD Physical Exam GENERAL: Thin built patient, in no apparent distress. Sedated SKIN: No rashes, ecchymoses or lesions. Cool and dry. HEAD: Atraumatic. Normocephalic. No temporal or scalp tenderness. EYES: Pupils equal round and reactive. Extraocular motions intact. No scleral icterus. No injection or drainage. One petechia on R lower lid present NECK: Trachea midline. Supple, nontender, no meningeal signs. CARDIOVASCULAR: Systolic and diastolic murmur gr II-III noted. No thrill or bruit noted. Perifery well perused RESPIRATORY: Clear to auscultation. Breath sounds equal bilaterally. No wheezes , rales, or rhonchi. GASTROINTESTINAL: Abdomen soft, non-tender, nondistended. MUSCULOSKELETAL: On the left upper extremity dorsum there is evidence of cellulitis and possibly some induration on the second and third knuckle. Overall the left hand appeared to be slightly more swollen than the right side. + Generalysed edema, more prominent on bl hands NEUROLOGICAL: Sedated. Unresponsive Psych could not be assessed IV line sites with no evidence of infection. 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 not a candidate for surgery due to active drug use MSSA bacteremia (microscan confirmed ): persistent high garde bacteremia Acute resp failure on vent Acute cerebral infarction: likely ERIC related septic emboli. Acute AL likely ERIC related septic emboli. acute metabolic encephalopathy: likely related to stroke, infection. Persistent fevers: infection,infarcts, drugs, dissemination of infection, untapped sources of infection like distant abscesses in lung or abdomen. Critically ill, remians unstable poor prognosis Recs Cont Oxacillin IV will add Gentamycin at this point Katie Raymundo MD Mar 30, 2017 21:48
[2017-03-31] VITALS (10 sets, daily range): BP systolic 102–109; BP diastolic 53–54; PULSE 92–103; RESP 14–15; TEMP 98.7–100; O2SAT 90–100
[2017-03-31] MEDS: SODIUM CHLORIDE 0.9% IV SCH ×2 (00:06→08:42)
[2017-03-31] MEDS: GENTAMICIN IV SCH ×2 (00:06→08:42)
[2017-03-31] MEDS: fentaNYL DRIP 250 ML IV SCH (00:07)
[2017-03-31] MEDS: OXACILLIN INJ 2 GM in SODIUM CHLORIDE 0.9% INJ 100 ML IV SCH ×3 (02:14→08:43)
[2017-03-31] MEDS: RESP: ALBUTEROL 2.5 MG/IPRATROPIUM 0.5 MG NEB (SCH) INH ×2 (03:11→07:57)
[2017-03-31] MEDS: CHLORHEXIDINE GLUCONATE 2 % 1 PACK (2 CLOTHS)(taper/protocol) TOPICAL SCH (04:00)
[2017-03-31] MEDS: PROPOFOL 1000 MG/100 ML INJ 100 ML IV SCH ×2 (04:25→08:43)
--- NOTE | 2017-03-31 05:14 | RADRPT ---
EXAM DATE/TIME: 03/31/2017 04:33 [facility] COMPARISON: CHEST SINGLE AP, March 30, 2017, 18:49. INDICATIONS : Shortness of breath, possible pulmonary disease. MEDICAL HISTORY : AVM SURGICAL HISTORY : AVM Repair ENCOUNTER: Subsequent ACUITY: 4 - 6 days PAIN SCORE: Non-responsive. LOCATION: Bilateral chest FINDINGS: Endotracheal tube tip well above the rachana. Gastric tube traverses the field of view. Left central line tip projects in the right atrium. Persistent patchy infiltrates in the mid and lower lungs cole aterally, slightly improved when compared to prior. CONCLUSION: Persistent but slightly improved mid and lower lung infiltrates. Tarik Jacinto MD on March 31, 2017 at 5:11 Board Certified Radiologist. This report was verified electronically.
[2017-03-31] MEDS: INSULIN NovoLIN REGULAR SUPPLEMENTAL SCALE SQ SCH ×2 (05:25)
[2017-03-31 07:03] LABS: APTT (PATIENT) 26.4 SEC (24.3-30.1); INTERNATIONAL NORMALIZED RATIO 1.1 RATIO; PROTHROMBIN TIME - PATIENT 12.1 SEC (9.8-11.6)
[2017-03-31 07:12] LABS: AUTOMATED NEUTROPHIL # 8.4 TH/MM3 (1.8-7.7); BASOPHIL % 0.3 % (0.0-2.0); EOSINOPHIL # 0.1 TH/MM3 (0-0.4); EOSINOPHIL % 1.2 % (0.0-4.0); HEMATOCRIT 31.1 % (39.0-51.0); LYMPHOCYTE # 0.7 TH/MM3 (1.0-4.8); MEAN CELL VOLUME 83.6 FL (80.0-100.0); MEAN CORPUSCULAR HEMOGLOBIN 28.9 PG (27.0-34.0); MEAN CORPUSCULAR HGB CONC 34.6 % (32.0-36.0); MONO % 6.5 % (0.0-8.0); PLATELET COUNT 94 TH/MM3 (150-450); RED BLOOD COUNT 3.71 MIL/MM3 (4.50-5.90); RED CELL DISTRIBUTION WIDTH 14.1 % (11.6-17.2); WHITE BLOOD COUNT 9.9 TH/MM3 (4.0-11.0)
[2017-03-31 07:17] LABS: ANION GAP 9 MEQ/L (5-15); AST (GOT) 92 U/L (15-37); BICARBONATE 29.3 MEQ/L (21.0-32.0); BLOOD UREA NITROGEN 25 MG/DL (7-18); CHLORIDE 108 MEQ/L (98-107); GLOMERULAR FILTRATION RATE 140 ML/MIN (>89); MAGNESIUM 2.3 MG/DL (1.5-2.5); POTASSIUM 3.1 MEQ/L (3.5-5.1); SODIUM (NA) 146 MEQ/L (136-145)
[2017-03-31 07:20] LABS: HEMO FLAGS AUTO DIFF
[2017-03-31 07:21] LABS: ALKALINE PHOSPHATASE 101 U/L (45-117); ALT (GPT) 39 U/L (12-78); TOTAL BILIRUBIN ADULT 0.5 MG/DL (0.2-1.0)
[2017-03-31] MEDS: CHLORHEXIDINE 0.12% (ORAL KIT) 15 ML CUP MT SCH (08:00)
[2017-03-31] MEDS: BUMETANIDE INJ 1 MG/4 ML VIAL IV PUSH SCH (08:34)
[2017-03-31] MEDS: POTASSIUM CHLORIDE 25 MEQ EFFERVESCENT TAB PO SCH (08:35)
[2017-03-31 09:19] LABS: PLATELET ESTIMATE SMEAR LOW (NORMAL); PLATELET MORPHOLOGY NORMAL (NORMAL); SCAN/DIFF AUTO DIFF CONFIRMED
[2017-03-31] MEDS ORDERED: NOREPINEPHRINE-DEXTROSE DRIP 250 ML IV ONE (10:17)
[2017-03-31] MEDS ORDERED: TERBUTALINE INJ 1 MG/ML AMP SQ PRN (10:30)
[2017-03-31] MEDS ORDERED: ALBUMIN HUMAN 25% 25 GM/100 ML BAGP IV ONE (10:32)
[2017-03-31 10:49] LABS: BLOOD GAS BASE EXCESS -2.9 mmol/L (-2-2); BLOOD GAS HCO3 20 mmol/L (22-26); BLOOD GAS METHEMOGLOBIN 1.3 % (0-2); BLOOD GAS O2 HGB SATURATION 86 % (90-100); BLOOD GAS OXYGEN CONTENT 13.5 Vol % (12.0-20.0); BLOOD GAS PCO2 27 mmHg (38-42); BLOOD GAS PO2 54 mmHg (61-120); BLOOD GAS TOTAL HGB 11.2 G/DL (12.0-16.0); TEMP CORR TO 98.6
[2017-03-31 10:50] LABS: CRITICAL VALUE YES; DRAW SITE RT RADIAL; FIO2 60 %; NUMBER OF ARTERIAL PUNCTURES 1; OXYGEN DEVICE VENTILATOR; STAT NO; ULNAR PULSE PRESENT; VENT SETTINGS AC15/600/+
[2017-03-31] MEDS ORDERED: VASOPRESSIN INJ 40 UNITS in DEXTROSE 5% IN WATER 100ML INJ 98 ML IV SCH ×2 (10:54)
--- NOTE | 2017-03-31 10:56 | HHI.CCPN ---
Subjective Remarks/Hospital Course This is a 36-year-old male with a history of IV drug abuse who originally presented to the hospital yesterday with complaints of chest pain but left AMA before being evaluated. He reports a net today brought in by EMS for altered mental status, left-sided paralysis, and rightward gaze. He was last seen normal last night. He was not protecting his area emergency department and was intubated by the emergency room physician for hypoxic and hypercarbic respiratory failure. He was febrile in the emergency department with a leukocytosis, lactic acidosis. CT head is positive for multiple small punctate hemorrhages. I was present for his bedside transthoracic echocardiogram which appears to be positive for a 1 x 1 cm mobile aortic valve vegetation with significant aortic regurgitation. 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 SUBJ 03/28: Remains intubated sedated with Fentanyl gtt. Flaccid L hemiparesis. Continues to spike fever, and remains encephalopathic indicating ongoing severe sepsis. P/E with [place] murmur. TTE personally reviewed. Evidence of AV vegetation with severe AI 03/29: Patient continues to be febrile with chills and rigor. 4 over 4 bottles staph aureus. Developed acute desaturation today, currently on 100% FiO2 and 10 PEEP. Repeat chest x-ray shows interval development of pulmonary edema and bilateral pleural effusions. Patient is developing decompensated heart failure secondary to severe aortic regurgitation. He is deemed not a candidate for surgery due to active drug use. I will start diuresis on him. Brother and mother updated at the bedside 03/30: Remains intubated sedated. Chest x-ray shows slight improvement with diuresis. Increase Bumex to 2 mg IV every 12. Withdraws right upper and lower extremities to pain no spontaneous eye opening. Blood cultures showed persistent gram-positive bacteremia. Prognosis remains poor 03/31: Patient is developing profound septic shock. All sedation and diagnosis held. Started on Levophed and vasopressin added. We'll also place on stress dose steroids. Remains hypoxemic. Extensive ST depressions on EKG not a candidate for PCI. Will discuss Aspirin and sq heparin with Dr. Khan Objective Vital Signs Date Time Temp Pulse Resp B/P Pulse Ox O2 Delivery O2 Flow Rate FiO2 03/31/17 10:31 90 50 03/31/17 06:00 92 03/31/17 04:00 98.8 14 109/53 03/27/17 23:00 Ventilator 03/27/17 21:55 13 Intake and Output 03/30/17 03/30/17 03/31/17 08:00 16:00 00:00 Intake Total 684 ml 918 ml 1085 ml Output Total 550 ml 1350 ml 1850 ml Balance 134 ml -432 ml -765 ml Result Diagram: 03/31/17 0530 03/31/17 0530 Other Results Laboratory Tests Test 03/30/17 03/31/17 19:05 10:42 Blood Gas Puncture Site RT RADIAL RT RADIAL Blood Gas Patient Temperature 98.6 98.6 Blood Gas HCO3 26 mmol/L 20 mmol/L (22-26) (22-26) Blood Gas Base Excess 2.6 mmol/L -2.9 mmol/L (-2-2) (-2-2) Blood Gas Oxygen Saturation 98 % (90-100) 86 % (90-100) Arterial Blood pH 7.49 7.48 (7.380-7.420) (7.380-7.420) Arterial Blood Partial 34 mmHg (38-42) 27 mmHg (38-42) Pressure CO2 Arterial Blood Partial 467 mmHg 54 mmHg Pressure O2 (61-120) (61-120) Arterial Blood Oxygen Content 16.2 Vol % 13.5 Vol % (12.0-20.0) (12.0-20.0) Arterial Blood 0.8 % (0-4) 1.0 % (0-4) Carboxyhemoglobin Arterial Blood Methemoglobin 1.4 % (0-2) 1.3 % (0-2) Blood Gas Hemoglobin 10.9 G/DL 11.2 G/DL (12.0-16.0) (12.0-16.0) Oxygen Delivery Device VENTILATOR VENTILATOR Blood Gas Ventilator Setting AC15/600/+8 AC15/600/+ Blood Gas Inspired Oxygen 50 % 60 % Imaging Last Impressions Head CT 03/27/172052 Signed Impressions: Service Date/Time: March 20:59 - CONCLUSION: Small scattered cortical hemorrhages most prevalent right occipital region. Vahe Sanchez MD FACR Chest X-Ray 03/27/172052 Signed Impressions: Service Date/Time: March 21:09 - CONCLUSION: Minimal patchy airspace disease both lungs probable inflammatory process. Vahe Sanchez MD FACR Objective Remarks GENERAL: Young male, lying in bed, intubated, sedated, critically ill, now in profound shock tachycardic HEENT: Normocephalic. Atraumatic. Pupils equal, round, reactive, conjugate. Orotracheally intubated NECK: Trachea is midline. CHEST: Equal chest rise. Intubated. PRVC, 60% FiO2, PEEP 10. Air entry diminished bilateral bases with bilateral basilar crackles CARDIOVASCULAR: Tachycardic rate, regular rhythm. Sinus by telemetry. Early diastolic ([place]) murmur ABDOMEN: Soft, nontender, nondistended. No guarding. MUSCULOSKELETAL: Pulses weak. No peripheral edema. Positive for splinter hemorrhages. Also positive for evidence of IV needle radford particularly in the upper extremities NEUROLOGICAL: Sedated with Fentanyl, propofol, now on hold. L gaze preference. Pupils sluggish reaction. Flaccid L hemiplegia. Moves right upper and lower extremity, withdraws to pain A/P Assessment and Plan Assessment: This is a 36yM with aortic valve infective endocarditis, significant aortic regurgitation, punctate intracerebral hemorrhages, L hemiplegia, troponin elevation, acute encephalopathy, severe sepsis, and acute hypoxic and hypercarbic respiratory failure. He remains critically ill at this time. Now developing refractory shock. Placed on Levaquin and vasopressin started on stress dose steroids. MRI brain shows multiple embolic strokes with petechial hemorrhages. avoid anticoagulation. ID, neurology and CT surgery following. The patient is not a candidate for antiplatelet therapy or any intervention at this time due to punctate intracerebral hemorrhages Plan by systems: Neurologic: Acute encephalopathy Acute punctate intracerebral hemorrhages Septic intracerebral emboli, predominantly R frontal, insular cortex L Hemiplegia IV drug abuse Chronic opiates/Suboxone abuse Frequent neuro checks. MRI of brain with and without contrast 03/28 multiple punctate intracerebral hemorrhages, intracerebral emboli, predominantly R frontal, insular cortex Propofol/fentanyl for sedation vent synchrony. Sedation held due to hypotension --Intermittent neuromuscular paralysis for shivering and hypoxia --Neurology consulted Dr. Khan, hold antiplatelet therapy-will discuss starting ASA 81 mg daily Respiratory: Acute hypoxic and hypercarbic respiratory failure Acute pulmonary edema Left base consolidation/pneumonia Vent bundle, Head of bed at 30 Currently on PRVC/AC FiO2 60% PEEP 10 --No SBT due to hemodynamic instability Nebs --Broad-spectrum antibiotics-see ID Cardiovascular: Severe shock probably septic Aortic valve infective endocarditis Acute decompensated heart failure from severe AI Aortic regurgitation Elevated troponin/NSTEMI Hold Bumex. IVF 1L N and IV Albumin bolus --Start Levophed and Vasopressin, Start hydrocortisone 100 mg IV q8hrs --Arterial line and FloTrac monitoring IV antibiotics as below 2-D echo shows 1x1 cm AV veg and mod to sev AI --Cardiothoracic surgery consulted-not a surgical candidate --Elevated troponin likely demand ischemia and septic coronary emboli. trend troponins. cannot anticoagulate due to intracerebral hemorrhages. --ASA if ok with neurosurgery --No cardiology consult as no intervention or antiplatelet therapy can be given Renal: Alex, strict I's and O's, close monitoring of urine output given severe sepsis and valvulopathy. Strict I/Os FEN/GI: Acute protein calorie malnutritionmoderate Intravascular volume depletion Elevated LFTs Hep C Tube feeding, bowel regimen-Hold due to hemodynamic instability ICU electrolyte protocol Hepatitis panel-reactive for HepC Liver ultrasound-show splenomegaly Heme/ID: Aortic valve infective endocarditis Severe sepsis Thrombocytopenia Coagulopathylikely secondary to liver disease Trend coags, does not meet transfusion criteria at this time. INR is 1.4 Continue Oxacillin per ID --Thrombocytopenia most likely secondary to DIC Transfuse to keep >50,000 with intracerebral hemorrhages Endocrine: Hyperglycemia of critical illness --SSI, every 6, medium scale --Electrolyte replacement per protocol\ --Stress dose steroid added Prophylaxis: GI Prophylaxis Pepcid twice a day DVT Prophylaxis -- SCDs Pharmacologic DVT prophylaxis contraindicated given intracerebral hemorrhages, thrombocytopenia-will check with Dr. Khan Lines: L subclavian central line placed 03/28/17 Alex --Place art line today Dispo: Admit to the ICU. Remains critically ill. Now developing profound septic shock and probably cardiogenic shock as well. His prognosis is grim, as he has severe aortic regurgitation and is not a candidate for valve surgery This patient remains critically ill with one or more organ systems which are or may become a threat to life. I have spent in excess of 45 minutes discontinuously in the care and management of this patient. This time is exclusive of procedures, and includes, but is not limited to, evaluation of the patient, review of the medical record, discussions with family, consultants, nursing staff, or respiratory therapy, and documentation in the medical record. Leonard Iniguez MD Mar 31, 2017 10:56
[2017-03-31] MEDS ORDERED: NOREPINEPHRINE-DEXTROSE DRIP 250 ML IV SCH (11:00)
[2017-03-31] MEDS ORDERED: ASPIRIN 81 MG CHEW TAB CHEW SCH (11:45)
[2017-03-31] MEDS ORDERED: ALBUMIN HUMAN 25% 25 GM/100 ML BAGP IV SCH (12:00)
[2017-03-31] MEDS ORDERED: ENOXAPARIN SODIUM 40 MG/0.4 ML SYRINGE SQ SCH (12:00)
--- NOTE | 2017-03-31 13:00 | HHI.IDPN ---
Subjective Subjective Remarks delayed entry patient seen at ~ 10 am. is a 36 y/o CM with PMHx of IVDA who was admitted and diagnosed with Severe Sepsis with MODS, cerebral infarct as well as NC both likely secondary to septic emboli. MSSA aortic valve endocarditis. Patient is developing profound septic shock. All sedation and diagnosis held. Started on Levophed and vasopressin added. We'll also place on stress dose steroids. Remains hypoxemic. Extensive ST depressions on EKG not a candidate for PCI. Will discuss Aspirin and sq heparin with Dr. Khan Remains on vent PEEP 10, FiO2 80%. Urine output minimal. Minimal neurological response off sedation: not opening eyes, not following commands Moves Right side spontaneously. persistent MSSA bacteremia Now on Oxacillin and Genta IV No rash No diarrhea A-line placed. Has a CL Now on pressors. Antibiotics oxacillin Genta IV Lines Line sites with no e.o infection Past Medical History reviewed. Allergies: Coded Allergies: Iohexol (OMNIPAQUE) (Verified Allergy, Mild, hives, 03/27/17) very mild hives, no itching. Objective . Vital Signs Date Time Temp Pulse Resp B/P Pulse Ox O2 Delivery O2 Flow Rate FiO2 03/31/17 10:31 90 50 03/31/17 07:52 100 40 03/31/17 06:00 92 03/31/17 04:00 40 03/31/17 04:00 98.8 102 14 109/53 100 03/31/17 04:00 98.7 03/31/17 04:00 102 03/31/17 03:14 100 40 03/31/17 02:00 103 03/31/17 00:00 100.0 03/31/17 00:00 100.0 93 15 102/54 100 03/31/17 00:00 40 03/31/17 00:00 93 03/30/17 23:58 100 40 03/30/17 22:00 88 03/30/17 20:00 99.1 03/30/17 20:00 96 03/30/17 20:00 100 03/30/17 20:00 99.1 96 17 100/54 100 03/30/17 19:39 100 40 03/30/17 18:19 90 40 03/30/17 18:00 119 03/30/17 16:00 99.8 8/13/17 16:00 99.8 99 15 110/53 100 03/30/17 16:00 99 03/30/17 16:00 35 03/30/17 14:35 94 40 03/30/17 14:35 35 03/30/17 14:00 116 03/30/17 03/30/17 03/31/17 14:59 22:59 06:59 Intake Total 918 ml 2027 ml Output Total 1350 ml 2150 ml Balance -432 ml -123 ml IV Total 492 ml 1155 ml Tube Feeding 366 ml 712 ml Other 60 ml 160 ml Output Urine Total 1350 ml 2150 ml . Laboratory Tests Test 03/30/17 03/31/17 04:22 05:30 White Blood Count 10.9 TH/MM3 9.9 TH/MM3 Red Blood Count 3.78 MIL/MM3 3.71 MIL/MM3 Hemoglobin 10.9 GM/DL 10.7 GM/DL Hematocrit 31.7 % 31.1 % Mean Corpuscular Volume 83.9 FL 83.6 FL Mean Corpuscular Hemoglobin 28.9 PG 28.9 PG Mean Corpuscular Hemoglobin 34.4 % 34.6 % Concent Red Cell Distribution Width 14.0 % 14.1 % Platelet Count 60 TH/MM3 94 TH/MM3 Mean Platelet Volume 9.2 FL 9.8 FL Neutrophils (%) (Auto) 87.2 % 85.0 % Lymphocytes (%) (Auto) 5.1 % 7.0 % Monocytes (%) (Auto) 6.4 % 6.5 % Eosinophils (%) (Auto) 1.1 % 1.2 % Basophils (%) (Auto) 0.2 % 0.3 % Neutrophils # (Auto) 9.5 TH/MM3 8.4 TH/MM3 Lymphocytes # (Auto) 0.6 TH/MM3 0.7 TH/MM3 Monocytes # (Auto) 0.7 TH/MM3 0.6 TH/MM3 Eosinophils # (Auto) 0.1 TH/MM3 0.1 TH/MM3 Basophils # (Auto) 0.0 TH/MM3 0.0 TH/MM3 CBC Comment DIFF FINAL AUTO DIFF Differential Comment AUTO DIFF CONFIRMED Platelet Estimate LOW Platelet Morphology Comment NORMAL Red Cell Morphology Comment NORMAL Laboratory Tests Test 03/30/17 03/31/17 03/31/17 04:22 05:30 11:35 Sodium Level 141 MEQ/L 146 MEQ/L Potassium Level 3.2 MEQ/L 3.1 MEQ/L Chloride Level 108 MEQ/L 108 MEQ/L Carbon Dioxide Level 25.0 MEQ/L 29.3 MEQ/L Anion Gap 8 MEQ/L 9 MEQ/L Blood Urea Nitrogen 24 MG/DL 25 MG/DL Creatinine 0.74 MG/DL 0.65 MG/DL Estimat Glomerular Filtration 120 ML/MIN 140 ML/MIN Rate Random Glucose 86 MG/DL 79 MG/DL Calcium Level 8.1 MG/DL 8.2 MG/DL Magnesium Level 2.3 MG/DL 2.3 MG/DL Total Bilirubin 0.6 MG/DL 0.5 MG/DL Aspartate Amino Transf 62 U/L 92 U/L (AST/SGOT) Alanine Aminotransferase 36 U/L 39 U/L (ALT/SGPT) Alkaline Phosphatase 93 U/L 101 U/L Total Protein 5.7 GM/DL 5.7 GM/DL Albumin 2.2 GM/DL 2.2 GM/DL Troponin I 4.64 NG/ML Microbiology Date/Time Procedure Status Source Growth 03/28/17 23:05 Aerobic Blood Culture - Final Resulted Blood Peripheral Staphylococcus Aureus 03/28/17 23:05 Anaerobic Blood Culture - Preliminary Resulted Blood Peripheral NO GROWTH IN 3 DAYS 03/29/17 03:20 Aerobic Blood Culture - Final Resulted Blood Peripheral Staphylococcus Aureus 03/29/17 03:20 Anaerobic Blood Culture - Preliminary Resulted Blood Peripheral NO GROWTH IN 2 DAYS Imaging Last Impressions Chest X-Ray 03/30/17 0600 Signed Impressions: Service Date/Time: Thursday, March 30, 2017 03:39 - CONCLUSION: Slight worsening bilateral airspace disease. Jose Pearson MD Head CT 03/28/17 0900 Signed Impressions: Service Date/Time: Tuesday, March 28, 2017 11:18 - CONCLUSION: Acute hypodensity in the right frontal lobe characteristic of acute nonhemorrhagic. Otherwise stable evaluation. infarct. Chris Melara MD Liver Ultrasound 03/28/17 0000 Signed Impressions: Service Date/Time: Tuesday, March 28, 2017 09:01 - CONCLUSION: Splenomegaly. Otherwise focally unremarkable Hira Sanchez MD Hand X-Ray 03/28/17 0000 Signed Impressions: Service Date/Time: Tuesday, March 28, 2017 18:22 - CONCLUSION: Unremarkable limited examination of the left hand. Hira Sanchez MD Brain MRI 03/28/17 0000 Signed Impressions: Service Date/Time: Tuesday, March 28, 2017 10:46 - CONCLUSION: Scattered areas of cortical and white matter infarction with associated petechial hemorrhages. Hira Sanchez MD Physical Exam GENERAL: Thin built patient, in no apparent distress. Sedated SKIN: No rashes, ecchymoses or lesions. Cool and dry. HEAD: Atraumatic. Normocephalic. No temporal or scalp tenderness. EYES: Pupils equal round and reactive. Extraocular motions intact. No scleral icterus. No injection or drainage. One petechia on R lower lid present NECK: Trachea midline. Supple, nontender, no meningeal signs. CARDIOVASCULAR: Systolic and diastolic murmur gr II-III noted. No thrill or bruit noted. Perifery well perused RESPIRATORY: Clear to auscultation. Breath sounds equal bilaterally. No wheezes , rales, or rhonchi. GASTROINTESTINAL: Abdomen soft, non-tender, nondistended. MUSCULOSKELETAL: On the left upper extremity dorsum there is evidence of cellulitis and possibly some induration on the second and third knuckle. Overall the left hand appeared to be slightly more swollen than the right side. + Generalized edema, more prominent on bl hands NEUROLOGICAL: Sedated. Unresponsive Psych could not be assessed IV line sites with no evidence of infection. 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 not a candidate for surgery due to active drug use MSSA bacteremia (microscan confirmed ): persistent high garde bacteremia Acute resp failure on vent Acute cerebral infarction: likely ERIC related septic emboli. Acute NC likely ERIC related septic emboli. acute metabolic encephalopathy: likely related to stroke, infection. Persistent fevers: infection,infarcts, drugs, dissemination of infection, untapped sources of infection like distant abscesses in lung or abdomen. Critically ill, remians unstable poor prognosis Recs Cont Oxacillin IV will add Gentamicin at this point called to d/w about 2D ECHO repeat Also CT C/A/P if possible to rule out disseminated sources of infection such as abscesses for source control. informed me that patient was being coded and critically ill. Filomena García MD Mar 31, 2017 13:00
[2017-03-31] MEDS ORDERED: HYDROCORTISONE SOD SUCCINATE 100 MG VIAL IV SCH (14:00)
--- NOTE | 2017-03-31 14:57 | DEATH SUM ---
Summary Demographics Date Pronounced : Mar 31, 2017 Time Of : 13:04 Pronounced By: Dr. Iniguez Preliminary Cause of : Cardiac arrest Leonard Iniguez MD Mar 31, 2017 14:57
--- NOTE | 2017-03-31 15:04 | PD.PROCEDR ---
Procedure Note Procedure CPR note: I responded to Code Blue overhead in room 512. Patient developed asystole and a code blue was called. On my arrival patient was getting CPR. One amp of epinephrine was given stat followed by one amp of bicarbonate 1 g of calcium. CPR was continued and multiple rounds of epinephrine and bicarbonate and1 GM of calcium was given. Patient temporarily regained pulse with a tachycardic rhythm 2. But in a few minutes went into back into pea arrest. After approximately 25 minutes I did a bedside cardiac echo which showed true PEA. There was only a flickering movement of cardiac chambers are no effective contractions. After 27 minutes CPR was stopped due to futility and also due to family request. Patient's daughter and mother was at the bedside intermittently during the code. Patient was pronounced at 1304 on 03/31/17 Leonard Iniguez MD Mar 31, 2017 15:04
--- NOTE | 2017-03-31 15:07 | HHI.DS ---
Summary Note Date of : Mar 31, 2017 Time Of : 13:04 Admission Date Mar 27, 2017 at 21:42 Admitting Diagnosis sepsis, cortical hemorrhages, left hemiparesis Diagnosis at Time of : (1) Cardiac asystole ICD Code: I46.9 Diagnosis: Principal (2) Septic shock ICD Code: A41.9 Diagnosis: Principal (3) Cardiogenic shock ICD Code: R57.0 Diagnosis: Principal (4) Aortic valve endocarditis ICD Code: I35.8 Diagnosis: Principal (5) Aortic regurgitation ICD Code: I35.1 Diagnosis: Principal (6) Cerebral septic emboli ICD Code: I76 Diagnosis: Principal (7) NSTEMI (non-ST elevated myocardial infarction) ICD Code: I21.4 Diagnosis: Principal (8) Left hemiplegia ICD Code: G81.94 Diagnosis: Principal (9) Hypoalbuminemia ICD Code: E88.09 Diagnosis: Principal (10) Encephalopathy ICD Code: G93.40 Diagnosis: Principal (11) Coagulopathy ICD Code: D68.9 Diagnosis: Principal (12) IV drug abuse ICD Code: F19.10 Diagnosis: Secondary Procedures Left subclavian central line Brief History This is a 36-year-old male with a history of IV drug abuse who originally presented to the hospital yesterday with complaints of chest pain but left AMA before being evaluated. He reports a net today brought in by EMS for altered mental status, left-sided paralysis, and rightward gaze. He was last seen normal last night. He was not protecting his area emergency department and was intubated by the emergency room physician for hypoxic and hypercarbic respiratory failure. He was febrile in the emergency department with a leukocytosis, lactic acidosis. CT head is positive for multiple small punctate hemorrhages. I was present for his bedside transthoracic echocardiogram which appears to be positive for a 1 x 1 cm mobile aortic valve vegetation with significant aortic regurgitation. 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 CBC/BMP: 03/31/17 0530 03/31/17 0530 Significant Findings Laboratory Tests Test 03/28/17 03/28/17 03/29/17 03/30/17 15:50 23:56 04:54 04:22 Troponin I 2.80 NG/ML 2.30 NG/ML (0.02-0.05) (0.02-0.05) Red Blood Count 3.60 MIL/MM3 3.78 MIL/MM3 (4.50-5.90) (4.50-5.90) Hemoglobin 10.4 GM/DL 10.9 GM/DL (13.0-17.0) (13.0-17.0) Hematocrit 30.2 % 31.7 % (39.0-51.0) (39.0-51.0) Platelet Count 48 TH/MM3 60 TH/MM3 (150-450) (150-450) Neutrophils (%) (Auto) 86.8 % 87.2 % (16.0-70.0) (16.0-70.0) Lymphocytes (%) (Auto) 5.6 % 5.1 % (9.0-44.0) (9.0-44.0) Neutrophils # (Auto) 8.1 TH/MM3 9.5 TH/MM3 (1.8-7.7) (1.8-7.7) Lymphocytes # (Auto) 0.5 TH/MM3 0.6 TH/MM3 (1.0-4.8) (1.0-4.8) Platelet Estimate LOW (NORMAL) Prothrombin Time 12.7 SEC 12.2 SEC (9.8-11.6) (9.8-11.6) Activated Partial 31.3 SEC Thromboplast Time (24.3-30.1) Chloride Level 108 MEQ/L 108 MEQ/L (98-107) (98-107) Blood Urea Nitrogen 19 MG/DL (7-18) 24 MG/DL (7-18) Random Glucose 109 MG/DL (74-106) Calcium Level 7.8 MG/DL 8.1 MG/DL (8.5-10.1) (8.5-10.1) Aspartate Amino Transf 52 U/L (15-37) 62 U/L (15-37) (AST/SGOT) Total Protein 5.4 GM/DL 5.7 GM/DL (6.4-8.2) (6.4-8.2) Albumin 2.2 GM/DL 2.2 GM/DL (3.4-5.0) (3.4-5.0) Potassium Level 3.2 MEQ/L (3.5-5.1) Test 03/30/17 03/31/17 03/31/17 03/31/17 19:05 05:30 10:42 11:35 Blood Gas Base Excess 2.6 mmol/L -2.9 mmol/L (-2-2) (-2-2) Arterial Blood pH 7.49 7.48 (7.380-7.420) (7.380-7.420) Arterial Blood Partial 34 mmHg (38-42) 27 mmHg (38-42) Pressure CO2 Arterial Blood Partial 467 mmHg 54 mmHg Pressure O2 (61-120) (61-120) Blood Gas Hemoglobin 10.9 G/DL 11.2 G/DL (12.0-16.0) (12.0-16.0) Red Blood Count 3.71 MIL/MM3 (4.50-5.90) Hemoglobin 10.7 GM/DL (13.0-17.0) Hematocrit 31.1 % (39.0-51.0) Platelet Count 94 TH/MM3 (150-450) Neutrophils (%) (Auto) 85.0 % (16.0-70.0) Lymphocytes (%) (Auto) 7.0 % (9.0-44.0) Neutrophils # (Auto) 8.4 TH/MM3 (1.8-7.7) Lymphocytes # (Auto) 0.7 TH/MM3 (1.0-4.8) Platelet Estimate LOW (NORMAL) Prothrombin Time 12.1 SEC (9.8-11.6) Sodium Level 146 MEQ/L (136-145) Potassium Level 3.1 MEQ/L (3.5-5.1) Chloride Level 108 MEQ/L (98-107) Blood Urea Nitrogen 25 MG/DL (7-18) Calcium Level 8.2 MG/DL (8.5-10.1) Aspartate Amino Transf 92 U/L (15-37) (AST/SGOT) Total Protein 5.7 GM/DL (6.4-8.2) Albumin 2.2 GM/DL (3.4-5.0) Blood Gas HCO3 20 mmol/L (22-26) Blood Gas Oxygen Saturation 86 % (90-100) Troponin I 4.64 NG/ML (0.02-0.05) Imaging Last Impressions Head CT 03/27/172052 Signed Impressions: Service Date/Time: March 20:59 - CONCLUSION: Small scattered cortical hemorrhages most prevalent right occipital region. Vahe Sanchez MD FACR Chest X-Ray 03/27/172052 Signed Impressions: Service Date/Time: March 21:09 - CONCLUSION: Minimal patchy airspace disease both lungs probable inflammatory process. Vahe Sanchez MD FACR Hospital Course This is a 36-year-old male with a history of IV drug abuse who originally presented to the hospital yesterday with complaints of chest pain but left AMA before being evaluated. He reports a net today brought in by EMS for altered mental status, left-sided paralysis, and rightward gaze. He was last seen normal last night. He was not protecting his area emergency department and was intubated by the emergency room physician for hypoxic and hypercarbic respiratory failure. He was febrile in the emergency department with a leukocytosis, lactic acidosis. CT head is positive for multiple small punctate hemorrhages. I was present for his bedside transthoracic echocardiogram which appears to be positive for a 1 x 1 cm mobile aortic valve vegetation with significant aortic regurgitation. 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 SUBJ 03/28: Remains intubated sedated with Fentanyl gtt. Flaccid L hemiparesis. Continues to spike fever, and remains encephalopathic indicating ongoing severe sepsis. P/E with [facility] [place] murmur. TTE personally reviewed. Evidence of AV vegetation with severe AI 03/29: Patient continues to be febrile with chills and rigor. 4 over 4 bottles staph aureus. Developed acute desaturation today, currently on 100% FiO2 and 10 PEEP. Repeat chest x-ray shows interval development of pulmonary edema and bilateral pleural effusions. Patient is developing decompensated heart failure secondary to severe aortic regurgitation. He is deemed not a candidate for surgery due to active drug use. I will start diuresis on him. Brother and mother updated at the bedside 03/30: Remains intubated sedated. Chest x-ray shows slight improvement with diuresis. Increase Bumex to 2 mg IV every 12. Withdraws right upper and lower extremities to pain no spontaneous eye opening. Blood cultures showed persistent gram-positive bacteremia. Prognosis remains poor 03/31: Patient is developing profound septic shock. All sedation and diagnosis held. Started on Levophed and vasopressin added. We'll also place on stress dose steroids. Remains hypoxemic. Extensive ST depressions on EKG not a candidate for PCI. Will discuss Aspirin and sq heparin with Dr. Khan. Shortly after noon patient developed asystole and a CODE BLUE was called. I ran code blue for 27 minutes, and code was terminated due to futility. Cardiac US confirmed true PEA arrest, global akinesis, no pericardial effusion Leonard Iniguez MD Mar 31, 2017 15:07
--- NOTE | 2017-03-31 16:26 | EKG ---
Date Performed: 03/31/2017 Time Performed: 10:41:42 PTAGE: 36 years EKG: SINUS TACHYCARDIA WITH SHORT MI INTERVAL LOW QRS VOLTAGE IN EXTREMITY LEADS SEPTAL MYOCARDI AL INFARCTION , OF INDETERMINATE AGE MARKED ST DEPRESSION, CONSIDER SUBENDOCARDIAL INJURY ABNORMAL E CG PREVIOUS TRACING : 03/27/2017 21.18 Compared to previous tracing, patient has now an acute ante rior infarction with significant reciprical changes. Clinical correlation recommended. DOCTOR: Darío Burden Interpretating Date/Time 03/31/2017 16:24:45
[2017-03-31] MEDS ORDERED: PHARMACY ORDERED LAB ONE (23:30)
== END 2017-03-31 13:04 | disposition expired | DRG 871 ==
LOC: NEPC 20:47 → NEDA 21:42 → HIME 23:55
PROVIDERS: ADMIT Internal Medicine Critical Care Medicine; ATTEND Internal Medicine Critical Care Medicine
PROC: 0BH17EZ Insertion of Endotracheal Airway into Trachea, Via Natural or Artificial Opening (ICD-10-PCS; principal; 2017-03-27)
PROC: 5A1945Z Respiratory Ventilation, 24-96 Consecutive Hours (ICD-10-PCS; 2017-03-27)
PROC: 05H633Z Insertion of Infusion Device into Left Subclavian Vein, Percutaneous Approach (ICD-10-PCS; 2017-03-28)
PROC: 5A12012 Performance of Cardiac Output, Single, Manual (ICD-10-PCS; 2017-03-31)
DX: A41.9 Sepsis, unspecified organism (principal); J96.01 Acute respiratory failure with hypoxia; I21.4 Non-ST elevation (NSTEMI) myocardial infarction; D65 Disseminated intravascular coagulation [defibrination syndrome]; I61.1 Nontraumatic intracerebral hemorrhage in hemisphere, cortical; I46.9 Cardiac arrest, cause unspecified; J18.9 Pneumonia, unspecified organism; G93.41 Metabolic encephalopathy; D68.4 Acquired coagulation factor deficiency; J96.02 Acute respiratory failure with hypercapnia; R65.21 Severe sepsis with septic shock; I33.0 Acute and subacute infective endocarditis; R47.01 Aphasia; G81.94 Hemiplegia, unspecified affecting left nondominant side; I76 Septic arterial embolism; E44.0 Moderate protein-calorie malnutrition; E87.2 Acidosis; B19.20 Unspecified viral hepatitis C without hepatic coma; B95.61 Methicillin susceptible Staphylococcus aureus infection as the cause of diseases classified elsewhere; B96.89 Other specified bacterial agents as the cause of diseases classified elsewhere; E86.9 Volume depletion, unspecified; G40.909 Epilepsy, unspecified, not intractable, without status epilepticus; I35.1 Nonrheumatic aortic (valve) insufficiency; I50.9 Heart failure, unspecified; G89.29 Other chronic pain; N28.9 Disorder of kidney and ureter, unspecified; Z51.5 Encounter for palliative care; Z78.1 Physical restraint status; Z91.19 Patient's noncompliance with other medical treatment and regimen; F19.10 Other psychoactive substance abuse, uncomplicated; F17.210 Nicotine dependence, cigarettes, uncomplicated
CPT/HCPCS: 31500; 36600; 36620; 70450; 70553; 71010; 73120; 76705; 80048; 80053; 80074; 80202; 80307; 81001; 82140; 82550; 82552; 82805; 82948; 83605; 83735; 84484; 85025; 85027; 85610; 85730; 86140; 86403; 86703; 87040; 87070; 87077; 87086; 87147; 87186; 87205; 87641; 92950; 93005; 93306; 94002; 94003; 94640; 94664; A9579; J1580; J2175; J2543; J2700; J3010; J3370; J3480; J7030; J7040; J7050; J7120; P9047